=== PATIENT | female | born 2000 | race Caucasian/White ===

== ENCOUNTER 2024-11-01 13:10 | Outpatient (AMB) | payer OTHER, SELFPAY ==
--- NOTE | 2024-11-01 13:12 | A.OFFPC_ITS ---
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 Transferring from [facility] Follows with [facility] for [facility]. vyvanse and lithium, lamital stable Migraines increased in severity. 3x/month. Has to call out of work. Excedrin provides some relief. No aura. General right periorbital, temporal, parietal distribution. Interested in neurologic evaluation. Sees gynecology-11/01/24 ROS CONSTITUTIONAL: Denies weight loss, fever and chills. HEENT: Denies changes in vision and hearing. RESPIRATORY: Denies SOB and cough. CV: Denies palpitations and CP GI: Denies abdominal pain, nausea, vomiting and diarrhea. : Denies dysuria and urinary frequency. MSK: Denies new myalgia and joint pain. SKIN: Denies rash and pruritus. NEUROLOGICAL: Denies headache PSYCHIATRIC: Denies recent changes in mood. PHYSICAL EXAM: GENERAL: Alert and oriented x 3. NAD EYES: EOMI. Anicteric. HENT: Moist mucous membranes. No scleral icterus. No cervical lymphadenopathy. LUNGS: Clear to auscultation bilaterally. CARDIOVASCULAR: Regular rate and rhythm. No murmur. No JVD. ABDOMEN: Soft, non-tender +bs EXTREMITIES: No edema. Non-tender. SKIN: No rashes or lesions. Warm. NEUROLOGIC: No focal neurological deficits. CN II-XII grossly intact PSYCHIATRIC: Cooperative. 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 1. Little interest or pleasure in doing things: not at all 2. Feeling down, depressed, or hopeless: not at all 3. Trouble falling or staying asleep, or sleeping too much: not at all 4. Feeling tired or having little energy: more than half the days 5. Poor appetite or overeating: several days 6. Feeling bad about yourself - or that you are a failure or have let yourself or your family down: not at all 7. Trouble concentrating on things, such as reading the newspaper or watching television: not at all 8. Moving or speaking so slowly that other people could have noticed. Or the opposite - being so fidgety or restless that you have been moving around a lot more than usual: not at all 9. Thoughts that you would be better off or of hurting yourself in some way: not at all Total score: 3 Depression Screening Interpretation: Positive Depression Screening Done: Yes 09600 - PHQ-9 Billing: Yes Source: Developed by Drs. Jose Luis Tijerina, Mansi Gan, Edgard Dorsey and colleagues, with an educational kelvin from [employer]. Thrive Questionnaire Date Thrive assessed: 11/01/24 I am a: Patient What is your living situation today?: I have a steady place to live Within the past 12 months, did the food you bought not last and you didn't have the money to get more?: Never true Within the past 12 months, did you worry whether your food would run out before you got money to buy more?: Never true Do you have trouble paying for medicines?: No Do you have trouble getting transportation to medical appointments?: No Do you have trouble paying your heating and electricity bill?: No Do you have trouble taking care of your child, family member or friend?: No Do you have trouble with day-to-day activities such as bathing, preparing meals, shopping, managing finances, etc.?: No Are you currently unemployed and looking for a job?: No Are you interested in more education?: Yes Please select the resources that you would like help with: None Currently or been in a relationship where the following occur: No concerns reported THRIVE Score: 0 AUDIT C Alcohol Use Questionnaire (AUDIT-C) 1. How often do you have a drink containing alcohol?: Monthly or less 2. How many drinks containing alcohol do you have on a typical day when you are drinking?: 1 or 2 3. How often do you have six or more drinks on one occasion?: Never Total Score: 1 JESSICA-7 AMB Questionnaire JESSICA-7 Date JESSICA - 7 assessed: 11/01/24 Feeling nervous, anxious, or on edge: 1 = Several days Not being able to stop or control worryin = Not at all Worrying too much about different things: 1 = Several days Trouble relaxin = Not at all Being so restless that it is hard to sit still: 0 = Not at all Becoming easily annoyed or irritable: 1 = Several days Feeling afraid as if something awful might happen: 0 = Not at all Total JESSICA-7 score (0-4 normal; 5-9 mild; 10-14 moderate; 15-21 severe): 3 Source: Developed by Drs. Jose Luis Tijerina, Mansi Gan, Edgard Dorsey and colleagues, with an educational kelvin from [employer]. JESSICA-7 Assessment Billing JESSICA-7 Assessment Tool: JESSICA-7 Assessment 41031 Physical exam (Primary Care) Vital Signs: Last Vital Signs Pulse 82 11/01/24 13:20 BP 118/68 11/01/24 13:20 Pulse Ox 99 11/01/24 13:20 Oxygen Delivery Method Room Air 11/01/24 13:20 BMI result Body Mass Index 25.1 Tobacco/Smoking Status: Tobacco use Status Tobacco use date assessed 11/01/24 11/01/24 13:23 Patient Tobacco Use Status Never used Tobacco 11/01/24 13:23 e-Cigarette/Vaping Use Never Used 11/01/24 13:23 PHQ-9: PHQ-9 Score PHQ-9: Total score 3 11/01/24 13:24 Depression Screening Interpretation: Positive Thrive Assessment: Date of Thrive Assessment Date Thrive assessed 11/01/24 11/01/24 13:14 Currently or been in a relationship where the following occur: No concerns reported Coding Level of Care Code Est Pt Level 4 (24447) Complex EM visit Add On G2211 Diagnoses Encounter to establish care Z76.89 Migraine without status migrainosus, not intractable, unspecified migraine type G43.909 Migraine type: unspecified Status migrainosus presence: without status migrainosus Intractability: not intractable Additional Codes JESSICA-7 Assessment Billing - JESSICA-7 Assessment Tool: JESSICA-7 Assessment 41419 ([id number]) PHQ-9 - 23945 - PHQ-9 Billing: Yes ([id number]) Assessment & Plan Assessment & Plan (1) Encounter to establish care: Code(s): Z76.89 - Persons encountering health services in other specified circumstances Category: Medical Plan: 24 year old female to establish care. past medical, surgical, social and family history reviewed. (2) Migraines: Code(s): G43.909 - Migraine, unspecified, not intractable, without status migrainosus Category: Medical Qualifiers: Migraine type: unspecified Status migrainosus presence: without status migrainosus Intractability: not intractable Qualified Code(s): G43.909 - Migraine, unspecified, not intractable, without status migrainosus Plan: start imitrex PRN. referred to neurology Orders: Orders Comprehensive Met. Panel 11/01/24 F31.9 - Bipolar disorder, unspecified, G43.909 - Migraine, unspecified, not intractable, without status migrainosus, Z13.0 - Encounter for screening for diseases of the blood and blood-forming organs and certain disorders involving the immune mechanism, Z13.228 - Encounter for screening for other metabolic disorders Lyme IgG/IgM w/reflex to WB 11/01/24 F31.9 - Bipolar disorder, unspecified, G43.909 - Migraine, unspecified, not intractable, without status migrainosus, Z13.0 - Encounter for screening for diseases of the blood and blood-forming organs and certain disorders involving the immune mechanism, Z13.228 - Encounter for screening for other metabolic disorders Complete Blood Count Auto Diff 11/01/24 F31.9 - Bipolar disorder, unspecified, G43.909 - Migraine, unspecified, not intractable, without status migrainosus, Z13.0 - Encounter for screening for diseases of the blood and blood-forming organs and certain disorders involving the immune mechanism, Z13.228 - Encounter for screening for other metabolic disorders Lipid Panel 11/01/24 F31.9 - Bipolar disorder, unspecified, G43.909 - Migraine, unspecified, not intractable, without status migrainosus, Z13.0 - Encounter for screening for diseases of the blood and blood-forming organs and certain disorders involving the immune mechanism, Z13.228 - Encounter for screening for other metabolic disorders TSH reflex Free T4 11/01/24 F31.9 - Bipolar disorder, unspecified, G43.909 - Migraine, unspecified, not intractable, without status migrainosus, Z13.0 - Encounter for screening for diseases of the blood and blood-forming organs and certain disorders involving the immune mechanism, Z13.228 - Encounter for screening for other metabolic disorders Referrals Neurology Referral G43.909 - Migraine, unspecified, not intractable, without status migrainosus Medications: New sumatriptan succinate (Imitrex) take 1 tab at onset of headache; if no relief, may repeat 1 tab after at least 2 hrs; max = 2 tabs/24 hrs PO 30 tabs 0RF
[2024-11-01 13:20] VITALS: BP 118/68; PULSE 82; O2SAT 99; BMI 25.1
== END 2024-11-01 13:43 | disposition home or self-care (01) ==
PROVIDERS: Visit Provider Internal Medicine
DX: Z76.89 Persons encountering health services in other specified circumstances (principal); G43.909 Migraine, unspecified, not intractable, without status migrainosus

== ENCOUNTER → 2024-11-01 13:10 | Outpatient (BNVA) | payer OTHER, SELFPAY | PROVIDERS: Visit Provider Internal Medicine | DX: Z76.89 Persons encountering health services in other specified circumstances (principal); G43.909 Migraine, unspecified, not intractable, without status migrainosus | CPT/HCPCS: 96127; 99212 ==

== ENCOUNTER 2024-11-01 14:28 | Outpatient (REF) | payer OTHER, SELFPAY ==
[2024-11-01 17:48] LABS: MANUAL DIFF FLAG NO
[2024-11-01 17:55] LABS: Basophils Absolute Auto 0.1 X10*3/uL (0.0-0.2); Basophils Percent Auto 1.4 % (0-2); Eosinophils Absolute Auto 0.1 X10*3/uL (0.0-0.4); Eosinophils Percent Auto 1.5 % (0-4); Hematocrit 39.4 % (37.0-47.0); Hemoglobin 12.8 g/dl (12.0-16.0); Imm Gran Abs Auto 0.02 X10*3/uL (0.00-0.03); Imm Gran Pct Auto 0.3 % (0.0-0.4); Lymphocytes Absolute Auto 2.1 X10*3/uL (1.2-4.9); Lymphocytes Percent Auto 28.8 % (20-40); Mean Corpuscular HGB Conc 32.5 g/dl (31.0-35.0); Mean Corpuscular Hemoglobin 30.1 pg (27.0-33.0); Mean Corpuscular Volume 92.7 fL (80.0-98.0); Mean Platelet Volume 10.7 fL (9.4-12.3); Monocytes Absolute Auto 0.5 X10*3/uL (0.1-1.2); Monocytes Percent Auto 6.5 % (2-11); Neutrophils Absolute Auto 4.5 x10*3/uL (2.0-8.3); Neutrophils Percent Auto 61.5 % (45-73); Platelet Count 354 X10*3/uL (160-400); Red Blood Count 4.25 X10*6/uL (4.20-5.50); Red Cell Distribution Width 12.3 % (11.0-16.0); White Blood Count 7.3 X10*3/uL (4.8-10.8)
[2024-11-01 18:21] LABS: Alanine Aminotransferase 32 U/L (0-31); Albumin Level 4.3 g/dL (3.5-5.0); Alkaline Phosphatase 56 U/L (39-117); Anion Gap 10 (12-20); Aspartate Amino Transferase 25 U/L (5-31); Bilirubin Total 0.3 mg/dL (0.0-1.0); Blood Urea Nitrogen 18 mg/dL (9-16); Calcium 9.7 mg/dL (8.4-10.2); Carbon Dioxide 27 mmol/L (22-29); Chloride 110 mmol/L (96-108); Cholesterol 187 mg/dL (<200); Estimated Glomerular Filt Rate > 60; Glucose Random 93 mg/dL (60-115); HDL Cholesterol 63 mg/dL (>40); LDL Cholesterol Calculated 99 mg/dL (<100); Potassium 3.8 mmol/L (3.3-5.1); Sodium 143 mmol/L (135-145); Total Protein 6.8 g/dL (6.5-8.0); Triglycerides 128 mg/dL (<150)
[2024-11-01 18:25] LABS: TSH reflex Free T4 1.77 uIU/mL (0.32-4.0)
[2024-11-04 17:48] LABS: Lyme Abs Screen <0.90 index
--- OUTSIDE RECORDS SUMMARY | 2024-11-06 10:20 | XMS_ITS | Data Portability ---
Author Organization [facility] Office Address [address] [facility] [place] [address] Assessment Encounter Date Assessment Date Assessment LastModified by Organization Details LastModified Time 12/15/2023 12/15/2023 ASSESSMENT Right hip likely symptomatic labral tear in the setting of underlying femoroacetabular impingement, also dysplastic features and concern for microinstability. PLAN At this point, I would like to obtain a CT scan 3D constructions. I also like her again dynamic ultrasound assessment including potential intra-articular injection for diagnostic and therapeutic purposes. I would also like to set up an appointment for 2nd opinion regarding potential benefits of periacetabular osteotomy in combination with hip arthroscopy or in isolation. We will facilitate accordingly and advised the patient to take a long imaging to be assessed as well. Question ultimately will be right hip arthroscopy, ____ QA MARKER: 136 ____ indicated versus in combination simultaneous with periacetabular osteotomy ____ QA MARKER: 140 ____. [email or web address] Not available 12/19/2023 15:34:29 01/25/2024 01/25/2024 ASSESSMENT Concern is for right hip symptomatic labral tear in the setting of underlying femoroacetabular impingement, but also joo hip dysplasia and micro stability. PLAN At this point, I would like her to see one of my colleagues performing open hip preservation surgery at [facility]. We will facilitate a meeting accordingly to see if hip arthroscopy alone or in combination with periacetabular osteotomy or stages would be performed. [email or web address] Not available 01/26/2024 05:08:17 Plan of Treatment Reminders Order Date Submit Date Provider Last Modified By Organization Details Last Modified Time Details Appointments None recorded. Lab None recorded. Referral None recorded. Procedures None recorded. Surgeries None recorded. Imaging CT, hip, w/o contrast - [facility] 3D RECONSTRUCT IONS JAIME PROTOCOL 2023 024 [facility], [address] [place], [address], 16:28:59 Medication Orders None recorded. Patient TargetsNo targets recorded. Patient InstructionsNo instructions recorded. Reason for Referral None Reported. Results Created Date Observation Date Name Description Value Unit Range Abnormal Flag Note LastModifiedBy Organization Detail LastModifiedTime 12/08/19 24 10/24/2023 MRI, hip, w/ contr ast No observ ation record ed. [email or web address] Not Available 12/08 14:27:24 01/11/20 24 01/08/2024 CT, hip, w/o contr ast No observ ation record ed. [address] [facility] [address] [place] [address], [address], 01/11/2024 16:29:03 Result Notes None recorded. Procedures Surgical History Date Name Laterality Status Provider Name and Address Organization Details Recorded Time 05/05/20 21 Orthopaedic Surgery completed Miroslava Joshi MA [facility] 12/15/2023 08:33:47 Imaging Results Imaging Date Name Status LastModified by Organ ation Details LastModified Time 10/24/2023 MRI, hip, w/ contrast completed [email or web address] Information not available 12/08/2023 14:27:24 01/08/2024 CT, hip, w/o contrast completed [address] [facility] [address] [place], [address], 01/11/2024 16:29:03 Procedure Notes None recorded. Medical Equipment None Reported. Allergies No known drug allergies Medications Name Sig Start Date Stop Date Status Note LastModified by Organization Details LastModified Time lithium carbonate 300 mg capsule Take 1 capsule 3 times a day by oral route. active Not Available Not Available No t Available Lamictal 150 mg tablet Take 1 tablet twice a day by oral route. active Not Available Not Available No t Available Vyvanse 60 mg capsule Take 1 capsule every day by oral route. active Not Available Not Available No t Available Vitals Date Recorded Body height Body mass index (BMI) Body weight Provider Name and Address Organization Details Last Updated DateTime 12/15/2023 172.72 cm 23.3 kg/m2 47963.63 g Miroslava Joshi [facility] 12/15/2023 08:32:45 Date Recorded Body height Body mass index (BMI) Body weight Provider Name and Address Organization Details Last Updated DateTime 01/25/2024 172.72 cm 23.3 kg/m2 83551.63 g Mayuri Hackett [facility] 01/25/2024 15:47:19 Social History Question Answer Notes LastModified by Organizat ion Details LastModified Time Tobacco Smoking Status Never Smoker Miroslava alejandre [facility] 12/15/2023 08:25:03 What Is Your Level Of Alcohol Consumption? Occasional Information not available 12/15/2023 Do You Or Have You Ever Used E-cigarettes Or Vape? 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 Never Used Smokeless Tobacco Information not available 12/15/2023 Sex: Unknown Functional Status None recorded. Mental Status None recorded. Family History Nothing Reported. Medical History Condition Response HIV or AIDS N High Blood Pressure N Irregular Heartbeat N MRSA N Any Other Significant Medical Issues N Weight Gain / Loss N Hearing Loss N Angina, Heart Failure or Attack N Night Sweats N Seizures / Epilepsy N Osteoarthritis / Rheumatoid arthritis / Other N Cancer N Stroke N Ulcer / Stomach Bleeding / Indigestion N Visual Loss or Glaucoma N Blood Clots / Phlebitis N Heart Problems N Depression or Anxiety Y Emphysema / Chronic Bronchitis N Reaction to General/Local Anesthesia N Hepatitis / Jaundice Y Kidney / Bladder Infections N Diabetes N Bleeding Disorder N Chemical Dependency / Alcoholism N Psoriasis / Skin Rash N Thyroid Disorder N Heart Disease N Asthma / Shortness of Breath / Sleep Bacon Stringer ea (please specify) N Pulmonary Embolism N Gynecological HistoryNo gynecological history recorded. 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 Hip pain 41815904 M25.55 1 [id number] KASSY GONZALES MD [facility] [address] [place] [phone] 01/25/2024 07:38:22 01/26/2024 14:04:15 Hip pain 42397523 M25.551 Health Concerns Section Related Observation LastModified by Organization Detai ls LastModified Time None Recorded Concern Status LastModified by Organization Details LastModified Time None Recorded Advance Directives Directive None Recorded Payers Encounter Date Sequence Insurance Name Policy Number Policy Muller Covered Member ID Muller Member ID Guarantor Name 12/15/2023 1 [facility] DIRECT CONNECTORCARE TYPE I (HMO) [id number] Seema Radha Earnest [id number] Seema Tinoco 01/25/2024 1 [facility] - [employer] CONNECTORCARE TYPE I (HMO) [id number] Seema Radha Earnest [id number] 1 Seema Radha Earnest Notes Date Note Type Note Provider Name and Address Organization Details Recorded Time 12/15/2023 text/html 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 She has done recently physical therapy for more than a month. She has modified activities and taking anti-inflammatories . Recent MRI obtained as well as plain radiographs. She denies history of hypermobility. She denies history of connective tissue disease. EVON PEARCE [address] [place] [address], [place], [address], [facility] 12/25/2023 21:54:43 01/25/2024 text/html We were in touch with Seema today via Telehealth audiovisual [employer]. The patient is at work in [place], [place] and I am in the office in [place], [place]. Time for the visit including independent review of recently obtained original hip analysis was 27 minutes, also including discussion about next therapeutic steps. I also reviewed the recent consult with dynamic ultrasound assessment indicating slightly increased femoral head translation on dynamic ultrasound. This is concerning for micro stability. She was noted to have high-grade borderline dysplastic features on plain radiographs. This now seems to be consented on CT scan with 3D construction virtual hip analysis. KASSY GONZALES MD [address] [place] [address], [phone], [facility] 01/30/2024 15:36:59 OBGyn Episode No OBEpisode recorded.
== END 2024-11-01 14:29 | disposition home or self-care (01) ==
LOC: HO.WFDLDS 14:28
PROVIDERS: Visit Provider Internal Medicine
DX: Z13.228 Encounter for screening for other metabolic disorders (principal); Z13.0 Encounter for screening for diseases of the blood and blood-forming organs and certain disorders involving the immune mechanism; F31.9 Bipolar disorder, unspecified; G43.909 Migraine, unspecified, not intractable, without status migrainosus
CPT/HCPCS: 36415; 80053; 80061; 84443; 85025; 86617; 86618

== ENCOUNTER 2025-07-22 09:10 | Outpatient (REF) | payer OTHER, SELFPAY ==
[2025-07-22 15:22] LABS: Alanine Aminotransferase 37 U/L (0-31); Albumin Level 4.5 g/dL (3.5-5.0); Alkaline Phosphatase 69 U/L (39-117); Anion Gap 13 (12-20); Aspartate Amino Transferase 22 U/L (5-31); Blood Urea Nitrogen 15 mg/dL (9-16); Calcium 9.5 mg/dL (8.4-10.2); Carbon Dioxide 25 mmol/L (22-29); Chloride 110 mmol/L (96-108); Estimated Glomerular Filt Rate > 60; Magnesium 2.5 mg/dL (1.6-2.6); Potassium 3.6 mmol/L (3.3-5.1); Sodium 144 mmol/L (135-145); Total Protein 7.2 g/dL (6.5-8.0)
[2025-07-23 08:48] LABS: Lyme Abs Screen <0.90 index
== END 2025-07-22 09:11 | disposition home or self-care (01) ==
LOC: HO.WFDLDS 09:10
PROVIDERS: PCP Internal Medicine; Visit Provider Internal Medicine
DX: E04.2 Nontoxic multinodular goiter (principal); R00.1 Bradycardia, unspecified; R00.2 Palpitations
CPT/HCPCS: 36415; 80053; 83735; 84443; 86617; 86618; 96127

== ENCOUNTER 2025-07-22 09:10 | Outpatient (AMB) | payer OTHER, SELFPAY ==
--- OUTSIDE RECORDS SUMMARY | 2024-09-13 08:00 | XMS_ITS | Encounter Summary ---
Author Organization [facility] Address [address] [place] [address] Care Team Providers Care Head Of Insight Name Role Phone Unavailable Primary Care Provider [...] Care Team (Late st Contact Info) Description 09/09/2025 4:00 PM EDT Office Visit [facility] [address] [place] [address] Nicole Tatum, EVON [address] [place] [address] documented as of this encounter Goals Goal [...]
--- NOTE | 2025-07-22 09:15 | A.OFFPC_ITS ---
Vital Signs 07/22/25 09:23 Height 5 ft 6.54 in Weight 145 lb BMI 23.0 BP 126/70 Blood Pressure Location Rt brachial Position Sitting Respiration 12 Pulse 89 Pulse Source Pulse Oximeter Temp 98.8 F Temp Source Oral Pulse Oximetry (%) 100 Oxygen Delivery Method Room Air Intake Visit Reasons: Heart Palpitation Intake Note: Heart palpatation. Went to [facility] last week. Time Clock Inspector Required: No Allergies No Known Allergies Allergy (Verified 07/22/25 09:21) Tobacco use date assessed: 07/22/25 Dental Screening Dental Screen Date: 07/22/25 Did you have a dental visit in the last 12 months?: Yes Did you have a dental problem in the last 6 months where you did not have access to dental care?: No Was dental information given to patient?: Patient has dentist HPI HPI Comments History of Present Illness Details The patient is a 24 year old female with a past medical history of ADD, bipolar disorder presenting for palpitations Patient notes that heart rat has been dropping into the 40s and increasing into the 120s, 130s with no change in exertional level. She denies lighthead/dizziness with bradycardia. Heart beats feel regular. No recent change in medications Follows with [facility] for [facility]. vyvanse and lithium, lamital stable Migraines- 3x/month. Has to call out of work. Excedrin provides some relief. No aura. General right periorbital, temporal, parietal distribution. Referred previously to neurology Sees gynecology-11/01/24 ROS see HPI PHYSICAL EXAM: GENERAL: Alert and oriented x 3. NAD EYES: EOMI. Anicteric. HENT: Moist mucous membranes. No scleral icterus. Heterogenous thyroid LUNGS: Clear to auscultation bilaterally. CARDIOVASCULAR: Regular rate and rhythm. No JVD. ABDOMEN: Soft, non-tender +bs EXTREMITIES: No edema. Non-tender. SKIN: No rashes or lesions. Warm. NEUROLOGIC: No focal neurological deficits. CN II-XII grossly intact PSYCHIATRIC: Cooperative. 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 1. Little interest or pleasure in doing things: not at all 2. Feeling down, depressed, or hopeless: not at all 3. Trouble falling or staying asleep, or sleeping too much: not at all 4. Feeling tired or having little energy: nearly every day 5. Poor appetite or overeating: nearly every day 6. Feeling bad about yourself - or that you are a failure or have let yourself or your family down: not at all 7. Trouble concentrating on things, such as reading the newspaper or watching television: not at all 8. Moving or speaking so slowly that other people could have noticed. Or the opposite - being so fidgety or restless that you have been moving around a lot more than usual: not at all 9. Thoughts that you would be better off or of hurting yourself in some way: not at all Total score: 6 Depression Screening Interpretation: Positive Depression Screening Follow-up: In treatment Depression Screening Done: Yes 15606 - PHQ-9 Billing: Yes Source: Developed by Drs. Jose Luis Tijerina, Mansi Gan, Edgard Dorsey and colleagues, with an educational kelvin from [employer]. Thrive Questionnaire Date Thrive assessed: 07/19/25 I am a: Patient What is your living situation today?: I have a steady place to live Within the past 12 months, did the food you bought not last and you didn't have the money to get more?: Never true Within the past 12 months, did you worry whether your food would run out before you got money to buy more?: Never true Do you have trouble paying for medicines?: No Do you have trouble getting transportation to medical appointments?: No Do you have trouble paying your heating and electricity bill?: No Do you have trouble taking care of your child, family member or friend?: No Do you have trouble with day-to-day activities such as bathing, preparing meals, shopping, managing finances, etc.?: No Are you currently unemployed and looking for a job?: No Are you interested in more education?: Yes Please select the resources that you would like help with: None Currently or been in a relationship where the following occur: Controlled Emotionally THRIVE Score: 1 AUDIT C Alcohol Use Questionnaire (AUDIT-C) 1. How often do you have a drink containing alcohol?: Monthly or less 2. How many drinks containing alcohol do you have on a typical day when you are drinking?: 1 or 2 3. How often do you have six or more drinks on one occasion?: Never Total Score: 1 JESSICA-7 AMB Questionnaire JESSICA-7 Date JESSICA - 7 assessed: 07/22/25 Feeling nervous, anxious, or on edge: 2 = More than half the days Not being able to stop or control worryin = Several days Worrying too much about different things: 2 = More than half the days Trouble relaxin = Several days Being so restless that it is hard to sit still: 0 = Not at all Becoming easily annoyed or irritable: 0 = Not at all Feeling afraid as if something awful might happen: 0 = Not at all Total JESSICA-7 score (0-4 normal; 5-9 mild; 10-14 moderate; 15-21 severe): 6 Source: Developed by Drs. Jose Luis Tijerina, Mansi Gan, Edgard Dorsey and colleagues, with an educational kelvin from [employer]. JESSICA-7 Assessment Billing JESSICA-7 Assessment Tool: JESSICA-7 Assessment 76399 Physical exam (Primary Care) Vital Signs: Last Vital Signs Temp 98.8 F 07/22/25 09:23 Pulse 89 07/22/25 09:23 Resp 12 07/22/25 09:23 BP 126/70 07/22/25 09:23 Pulse Ox 100 07/22/25 09:23 Oxygen Delivery Method Room Air 07/22/25 09:23 BMI result Body Mass Index 23.0 Tobacco/Smoking Status: Tobacco use Status Tobacco use date assessed 07/22/25 07/22/25 09:26 Patient Tobacco Use Status Never used Tobacco 07/22/25 09:32 e-Cigarette/Vaping Use Never Used 07/22/25 09:32 PHQ-9: PHQ-9 Score PHQ-9: Total score 6 07/26/25 13:46 Depression Screening Interpretation: Positive Depression Screening Follow-up: In treatment Thrive Assessment: Date of Thrive Assessment Date Thrive assessed 07/19/25 07/22/25 09:16 Currently or been in a relationship where the following occur: Controlled Emotionally Coding Level of Care Code Est Pt Level 4 (26117) Diagnoses Bradycardia R00.1 Multinodular thyroid E04.2 Additional Codes JESSICA-7 Assessment Billing - JESSICA-7 Assessment Tool: JESSICA-7 Assessment 31427 ([id number]) PHQ-9 - 47984 - PHQ-9 Billing: Yes ([id number]) Assessment & Plan Assessment & Plan (1) Bradycardia: Code(s): R00.1 - Bradycardia, unspecified Category: Medical (2) Multinodular thyroid: Code(s): E04.2 - Nontoxic multinodular goiter Category: Medical Plan 25 y/o female presenting for bradycardia, tachycardia Bradycardia at this point more concerning Labs ordered. 48 hour monitor. Referral to cardiology Orders: Orders ECG holter monitor 48 hour 07/25/25 R00.1 - Bradycardia, unspecified TSH reflex Free T4 07/22/25 R00.1 - Bradycardia, unspecified, R00.2 - Palpitations Comprehensive Met. Panel 07/22/25 R00.1 - Bradycardia, unspecified, R00.2 - Palpitations Magnesium 07/22/25 R00.1 - Bradycardia, unspecified, R00.2 - Palpitations US thyroid 07/22/25 E04.2 - Nontoxic multinodular goiter Lyme IgG/IgM w/reflex to WB 07/22/25 R00.1 - Bradycardia, unspecified, R00.2 - Palpitations Referrals Cardiology Referral R00.1 - Bradycardia, unspecified, R00.2 - Palpitations
[2025-07-22 09:23] VITALS: BP 126/70; PULSE 89; RESP 12; TEMP 37.1; O2SAT 100; BMI 23.0
--- OUTSIDE RECORDS SUMMARY | 2025-07-22 09:32 | XMS_ITS | Clinical Summary ---
Author Organization [facility] Address [address] [place] [address] Phone Care Team Providers Care Manager Urgent Care Name Role Phone Prabhakar Funk MD Primary Care Provider Dewayne Hernandez Unavailable Prabhakar Funk MD Unavailable [phone] Ofelia Nelson Unavailable Social History Tobacco Use Types Packs/Day Years Used Date Smoking Tobacco: Never Tobacco Cessation:Counseling Given: Not Answered Comments Unknown Sex and Gender Information Value Date Recorded Sex Assigned at Not on file Legal Sex Female 7:15 AM EDT Gender Identity Not on file Sexual Orientation Not on file Last Filed Vital Signs Vital Sign Reading Time Taken Comments Blood Pressure - - Pulse - - Temperature 36.4 C (97.5 F) 11/06/2024 9:45 AM EST Respiratory Rate - - Oxygen Saturation - - Inhaled Oxygen Concentration - - Weight 71.8 kg (158 lb 4.6 oz) 11/06/2024 9:45 A M EST Height 173.1 cm (5' 8.15 ) 11/06/2024 9:45 AM ES T Body Mass Index 23.96 11/06/2024 9:45 AM EST Plan of Treatment Upcoming Encounters Date Type Department Care Team (Late st Contact Info) Description 09/08/2025 8:45 AM EDT Office Visit [facility] Orthopedics and Sports Medicine Department [address] [place] [phone] Juan Dumont MD [address] [facility] [address] [place] [address] Health Maintenance Due Date Last Done Comments HIV Screening 2001 MMR Vaccines (1 of 1 - Standard series) 2002 Varicella Vaccines (1 of 2 - 13+ 2-dose series) 2014 HPV Vaccines (1 - 3-dose series) 2016 Hepatitis C Screening 2019 Hepatitis B Vaccines (1 of 3 - 19+ 3-dose series) 2020 DTaP/Tdap/Td Vaccines (3 - Td or Tdap) 12/03/2023 06/02/2023, 06/30/2022 Influenza Vaccine (#1) 2025 , 09/06/2023, 09/25/2022, Additional history exists Meningococcal Vaccine Completed 12/08/2017 Meningococcal B Vaccine Completed 01/22/2019, 12/19 COVID-19 Vaccine Completed 08/21/2024, 09/2023, 09/25/2022, Additional history exists HIB Vaccines Aged Out No longer eligi ble based on patient's age to complete this topic Hepatitis A Vaccines Aged Out No long er eligible based on patient's age to complete this topic IPV Vaccines Aged Out No longer eligi ble based on patient's age to complete this topic Pneumococcal Vaccine: Pediatrics (0 to 5 Years) and At-Risk Patients (6 to 49 Years) Aged Out No longer eligible based on patient's age to complete this topic Rotavirus Vaccines Aged Out No longer eligible based on patient's age to complete this topic [place] [address] [place] [address] PLAN Care Teams Manager Urgent Care Relationship Specialty Start Date End Date Prabhakar Funk MD [address] [phone] PCP - General 04/01/[address] [place] [id number] PCP - Insurance PCP 01/01/24 Prabhakar Funk MD [address] [place] [phone] PCP - Clinical PCP 01/01/24 Ofelia Nelson [address] [place] [phone] PCP - Insurance Identified PCP 10/21/24
--- OUTSIDE RECORDS SUMMARY | 2025-07-22 09:32 | XMS_ITS | Encounter Summary ---
Author Organization [facility] Address [address] [place] [address] Phone Care Team Providers Care Principal Solutions Architect Name Role Phone Pradeep Sotelo MD Primary Care Provider [phone] Encounter Details Date Type Department Care Team (Late st Contact Info) Description 04/27/2021 Prep for Surgery Orthopedics [address], [address] [place] [address] Lindsey Villagomez PA-C [address] [place] [phone] Social History Tobacco Use Types Packs/Day Years Used Date Smoking Tobacco: Never Smokeless Tobacco: Never Alcohol Use Standard Drinks/Week Comments Never 0 (1 standard drink = 0.6 oz pur e alcohol) Comments No Sex and Gender Information Value Date Recorded Sex Assigned at Not on file Legal Sex Female 1:05 PM EDT Gender Identity Not on file Sexual Orientation Not on file documented as of this encounter H&P Notes * Lindsey Villagomez PA-C - 04/27/2021 9:10 AM EDT History:?Seema Tinoco??is a 20 y.o.??female who is seen today in regards to a right knee injury which she sustained on 03/04/2021. 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 She had immediate onset of pain and difficulty with weightbearing and range of motion. She also reports intermittent instability but denies any significant mechanical symptoms. She has seen Jono in the office and has been bracing, resting, and using anti-inflammatories and ice as needed. MRI confirms ACL tear. Patient has been involved in rehab for the right knee and is here for preoperative appointment. She has no history of any significant right knee injury and has had no prior right knee surgery. ?? Past medical history: None ?? Past surgical history: None ?? Allergies: No known drug allergies ?? Medications: Sumatriptan, OCPs ?? 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 Events include 100 and 200 m hurdles and javelin. She denies any alcohol, tobacco, illicit drug use. She is a current sophomore. ?? Physical Examination:? Seema is a pleasant well-appearing 20-year-old female, no apparent distress and alert and oriented x3. She ambulates in the office today with no significant antalgic gait and no assistive device. There is a scant right knee effusion, no deformity. Range of motion shows full extension and she has flexion to 130. She is a stable varus valgus exam at full extension and 30 degrees of flexion. No joint line tenderness medially or laterally. She has a negative Susan's. Posterior drawer is negative. She has increased anterior translation with a soft endpoint on the Edilson exam of the right knee consistent with 1-2+ laxity. Contralateral knee shows no significant anterior translation on Edilson exam. EHL, FHL, GS, AT function are intact. No significant quad atrophy. Sensation is intact in the deep peroneal, superficial peroneal, sural, saphenous, tibial distributions and she has palpable DP pulse. ?? Imaging: Patient had a recent right knee MRI at [facility] on 03/11/2021. This confirms complete ACL rupture and pathopneumonic bone bruising pattern. No evidence for articular cartilage or meniscal tear. No other significant ligamentous injury. ?? Assessment:?Right knee instability,?? ACL tear ?? Plan:? This is a 20-year-old female with a an acute ACL rupture. There is no apparent articular cartilage or meniscal injury. We discussed the imaging studies at length as well as management options including conservative and operative management. Given her age and activity level I would recommend right knee arthroscopy and ACL reconstruction/repair as indicated. I would recommend autograft. We discussed the risks and benefits of the various graft choices including BTB and hamstring autograft. I would recommend hamstring autograft for this young female athlete. We did discuss that this maycause some mild hamstring weakness, however she would like to avoid any potential anterior knee pain going forward. We also discussed possibility of allograft supplementation with hamstring reconstruction. I discussed with the patient the risks and benefits of surgery. A thorough discussion regarding thealternatives to surgery was also conducted. Risks and benefits include but are not limited to a risk of infection, blood loss, DVT/PE, damage to vessels, nerve injury, failure of the surgery, loss ofmotion and stiffness, and the need for future surgery. The patient understands that if mechanical implants (such as screws, suture anchors and buttons) are utilized that these may cause complications, and that revision of the implants may be necessary including removal of implants. The patient alsounderstands that the use of implants requires drilling tunnels, which may predispose the patient toa fracture. There have been no guarantees made and the decision for surgery has been made via a shared decision making model. All of the patient's questions and concerns were addressed, the risks of surgery were accepted and surgical consent was obtained. We will move forward with scheduling this procedure at a mutually convenient time. ?? documented in this encounter Plan of Treatment Not on file documented as of this encounter Visit Diagnoses Not on filedocumented in this encounter Care Teams Principal Solutions Architect Relationship Specialty Start Date End Date Pradeep Sotelo MD [address] [place] [address] PCP - General Adolescent Medicine 03/05/21 documented as of this encounter Additional Source Comments The information contained in this document represents components of the legal health record. It is not the complete legal health record.[facility]
--- OUTSIDE RECORDS SUMMARY | 2025-07-22 09:32 | XMS_ITS | Clinical Summary ---
Author Organization [facility] Address [address] [place], [place] [id number] Phone Care Team Providers Care Laser Beam Cutter Name Role Phone Pradeep Sotelo MD Primary Care Provider [phone] Allergies No known active allergies Medications prochlorperazin e (COMPAZINE) 10 MG tablet Take 1 tablet (10 mg total) by mouth every 8 (eight) hours as needed (nausea). 15 tablet Active Additional Information Patient not taking.Reported on 09/09/2021 LITHIUM CITRATE ORAL Take by mouth. Activ e dextroamphetami ne/amphetamine (ADDERALL ORAL) Take by mouth. Active norethindrone-e thinyl estradiol-iron (ESTROSTEP FE) 1-20(5)/1-30(7) /1mg-35mcg (9) Tab Take 1 tablet by mouth daily. Active Active Problems No known active problems Family History Medical History Relation Comments Other Father No Known Problems Mother Relation Status Comments Father overdose Mother Alive Social History Tobacco Use Types Packs/Day Years Used Date Smoking Tobacco: Never Smokeless Tobacco: Never Alcohol Use Standard Drinks/Week Comments Never 0 (1 standard drink = 0.6 oz pur e alcohol) Education Answer Date Recorded Are you interested in more education? Not on chanelle e 03/24/2023 Are you concerned about learning? Not on file 03/24/2023 No 03/24/2023 No 03/24/2023 Digital Access Answer Date Recorded No 04/22/2023 No 04/22/2023 No 04/22/2023 Reliable internet access at home? Not on file 04/22/2023 Device with a working camera? Not on file Comments No Sex and Gender Information Value Date Recorded Sex Assigned at Not on file Legal Sex Female 1:05 PM EDT Gender Identity Not on file Sexual Orientation Not on file Last Filed Vital Signs Vital Sign Reading Time Taken Comments Blood Pressure 114/64 11/06/2021 4:26 PM EST Pulse 66 11/06/2021 6:49 PM EST Temperature 36.1 C (97 F) 11/06/2021 4:26 PM EST Respiratory Rate 17 11/06/2021 6:49 PM EST Oxygen Saturation 98% 11/06/2021 6:49 PM EST Inhaled Oxygen Concentration - - Weight 68 kg (150 lb) 12/16/2021 3:38 PM EST Height 172.7 cm (5' 8 ) 12/16/2021 3:38 PM EST Body Mass Index 22.81 12/16/2021 3:38 PM EST Plan of Treatment Health Maintenance Due Date Last Done Comments Adult Td,Tdap Booster 2001 TSH LEVEL 2001 DEPRESSION SCREENING 2013 SMOKING Hx and SMOKELESS TOBACCO SCREENING 2014 HPV VACCINES (1 - 3-dose series) 2016 CHLAMYDIA SCREENING 2017 HEPATITIS C SCREENING 2019 HIV ONE-TIME SCREENING (18-6 5 YEARS) 2019 PAP SMEAR 2022 CREATININE LEVEL 11/06/2022 11/06/2021 LITHIUM LEVEL 11/06/2022 11/06/2021 COVID-19 VACCINE (3 - 2023-2 5 season) 2024 01/05/2021, 12/15/2020 MENINGOCOCCAL VACCINES (ACWY) Completed 12/08/2017 MENINGOCOCCAL VACCINES (B) Completed 01/22, 12/19/2018 HEPATITIS A VACCINES Aged Out No long er eligible based on patient's age to complete this topic HIB VACCINES Aged Out No longer eligi ble based on patient's age to complete this topic PNEUMOCOCCAL VACCINES (0-49 years) Aged Out No longer eligible b ased on patient's age to complete this topic Medical Devices Not on file Procedures Procedure Name Priority Date/Time Associated Diagnosis Comments LITHIUM LEVEL STAT 11/06/2021 6:31 PM EST BASIC METABOLIC PANEL STAT 11/06/2021 6:31 PM EST from Last 3 Months or Most Recently Relevant to Health Maintenance Results * Kimberton level (11/06/2021 6:31 PM EST) LITHIUM 0.52 0.50 - 1.20 mmol/L [facility] Blood 11/06/2021 6:31 PM EST 11/06/2021 6:43 PM EST us Lupillo Herbert MD LAB BLOOD ORDERABLES Final Resu lt Performing Organization Address [facility] Co de Phone Number [facility] [address] [place] [address] * (ABNORMAL) Basic metabolic panel (11/06/2021 6:31 PM EST) SODIUM 141 136 - 145 mmol/L [facility] CHLORIDE 107(H) 95 - 106 mmol/L [facility] POTASSIUM 4.5 3.5 - 5.2 mmol/L [facility] CO2 25 20 - 31 mmol/L [facility] BUN 6(L) 9 - 23 mg/dL [facility] CREATININE 0.62 0.50 - 1.30 mg/dL [facility] GLUCOSE 117(H) 74 - 106 mg/dL [facility] CALCIUM 9.3 8.7 - 10.4 mg/dL [facility] EGFR >120 >60 mL/min/1.7 3m2 [facility] Comment:Estimated glomerular filtration rate calculated using the CKD-EPI refit equation. ANION GAP 9 3 - 17 mmol/L [facility] Blood 11/06/2021 6:31 PM EST 11/06/2021 6:43 PM EST us Lupillo Herbert MD LAB BLOOD ORDERABLES Final Resu lt Performing Organization Address [facility]/ZIP Co de Phone Number [facility] [address] [place] [address] from Last 3 Months or Most Recently Relevant to Health Maintenance [place] [address] [place] [address] [place] [address] [place] [address] [place] [address] [place] [address] [place] [address] [place] [address] [place] [address] [address] [place] [address] [place] [address] [place] [address] Care Teams Laser Beam Cutter Relationship Specialty Start Date End Date Pradeep Sotelo MD [address] [place] [address] PCP - General Adolescent Medicine 03/05/21 Additional Source Comments The information contained in this document represents components of the legal health record. It is not the complete legal health record.[facility]
--- OUTSIDE RECORDS SUMMARY | 2025-07-22 09:32 | XMS_ITS | Clinical Summary ---
Author Organization [facility] Address [address] [place] [address] Phone Care Team Providers Care Outside Medical Sales Representative Name Role Phone Ofelia Dotson MD Primary Care Provider [phone] Allergies No known active allergies Medications lamotrigine (LAMICTAL ORAL) Take 1 tablet by mouth 1 (one) time each day. 125MG Active Vyvanse 50 mg capsule 1 TABLET DIRECTED DAILY 10/31/2024 Active lithium 300 mg capsule Take 1 capsule (300 mg total) by mouth 1 (one) time each day. 300MG DAILY AND 150MG AT NIGHT Active aspirin-acetami nophen-caffeine (EXCEDRIN MIGRAINE) 250-250-65 mg per tablet Take 1 tablet by mouth every 6 (six) hours if needed for headaches. Active riboflavin (VITAMIN B2) 400 mg tablet Take 1 tablet (400 mg total) by mouth 1 (one) time each day. 60 tablet 2 11/08/2024 Active topiramate (TOPAMAX) 25 mg tablet Take 1 tablet (25 mg total) by mouth 1 (one) time each day for 7 days, THEN 1 tablet (25 mg total) 2 (two) times a day for 14 days, THEN 2 tablets (50 mg total) 2 (two) times a day. 155 each 01/14/2025 Active doxycycline (MONODOX) 50 mg capsule 01/10/2025 Active tretinoin (RETIN-A) 0.025 % cream 01/10/2025 Active ergocalciferol (VITAMIN D-2) 1,250 mcg (50,000 unit) capsule Take 1 capsule (50,000 Units total) by mouth 1 (one) time per week. 4 each 02/24/2025 02/25/20 26 Active topiramate (Topamax) 50 mg tablet Take 1 tablet (50 mg total) by mouth 2 (two) times a day. 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 She saw neurology for headache and whooshing , pulastile tinnutus. She notes that whooshing sound primarily when she goes from sitting to standing/certain movements, it is bothersome, but not constant. She does not note any balance issues, vision change, weakness, vomiting. Patient had brain MRI 12/06/2024 [facility] that shows triangular-shaped cyst in the posterior body right lateral ventricle, no hydrocephalus, no solid masses noted. It does not involve the foramen of Monro, no hemorrhage. Dr. 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 It is not likely to be the cause of the swishing sounds or headache. I asked the patient to call if she has any change in symptoms, questions or concerns. At this point it does not seem she will need any neurosurgical intervention. I am not sure if the ringing in the ears is side effects from her meds, she has not yet started the rizatriptan, had stopped the sumatriptan, but does use Excedrin with Tylenol, is on Lamictal and lithium. I asked her to check with her pharmacist to see if they feel the Lamictal or other meds could be related, also when she takes the meds see if there is any correlation. All questions answered. Encounters Date Type Department Care Team Description 06/26/2025 3:00 PM EDT Office Visit [address] [address] Nicole Tatum PA Migraine without aura and without status migrainosus, not intractable (Primary Dx) from Last 3 Months Immunizations Name Administration Dates Next Due Influenza Quadravalent, MDCK , 0.5ml, preservative free (Flucelvax) 6mo and older 09/15/2018 Influenza Quadrivalent, 0.5m l, preservative free (Fluarix; FluLaval; Fluzone) ages 6mo and older (Afluria) 3yo and older 09/06/2023,09/25/2022,09/07/2021,09/15 Influenza trivalent, 0.5mL, preservative free (Fluarix; FluLaval; Fluzone) ages 6mo and older (Afluria) 3 years and older 08/21/2024 Meningococcal B, Recombinant (Bexsero) 16yo to less than 24yo 01/22/2019,12/19/2018 Meningococcal MCV4P 12/08/2017 PPD Test 03/27/2022,03/20/2022 Tdap Tetanus diptheria acell ular pertussis (Boostrix; Adacel) 7yo and older 06/02/2023,06/30/2022 Surgical History Surgery Date Site/Laterality Comments KNEE SURGERY Right ACL Medical History Medical History Date Comments Headache Adhd Hip dysplasia Social History Tobacco Use Types Packs/Day Years Used Date Smoking Tobacco: Never Passive Smoke Exposure: Never Smokeless Tobacco: Never Tobacco Cessation:Counseling Given: Not Answered Comments Unknown Sex and Gender Information Value Date Recorded Sex Assigned at Female 12/13/2024 8:39 AM EST Legal Sex Female 3:39 PM EDT Gender Identity Female 12/13/2024 8:39 AM EST Sexual Orientation Choose not to disclose 2024 8:39 AM EST Obstetrics History Last Filed Vital Signs Vital Sign Reading Time Taken Comments Blood Pressure 124/81 06/26/2025 3:05 PM EDT Pulse 72 06/26/2025 3:05 PM EDT Temperature 36.3 C (97.3 F) 06/26/2025 3:05 PM EDT Respiratory Rate - - Oxygen Saturation 98% 06/26/2025 3:05 PM EDT Inhaled Oxygen Concentration - - Weight 65.8 kg (145 lb) 06/26/2025 3:05 PM EDT Height 172.7 cm (5' 8 ) 06/26/2025 3:05 PM EDT Body Mass Index 22.05 06/26/2025 3:05 PM EDT Plan of Treatment Upcoming Encounters Date Type Department Care Team (Late st Contact Info) Description 09/09/2025 4:00 PM EDT Office Visit [facility] [address] [facility] [address] [place] [address] Nicole Tatum PA [address] [place] [phone] Health Maintenance Due Date Last Done Comments Gonorrhea/Chlamydia Screening 2001 HPV Vaccines (1 - 3-dose series) 2016 Cervical Cancer Screening: Pap Smear 2022 HIV Screening 09/04/2024 Hepatitis C Screening 09/04/2024 Social Influencers of Health Screening 09/04/2024 Depression Screening 11/27/2024 Influenza Vaccine (#1) 2025 , 09/06/2023, 09/25/2022, Additional history exists DTaP,Tdap,and Td Vaccines (3 - Td or Tdap) 06/02/2033 06/02/2023, 06/30/2022 Meningococcal ACWY Vaccine Completed 12/08/2017 Meningococcal B Vaccine Completed 01/22/2019, 12/19 COVID-19 Vaccine Completed 08/21/2024, 09/2023, 09/25/2022, Additional history exists Hepatitis B Vaccines Completed 04/29/2025, 03/29/20 HIB Vaccines Aged Out No longer eligi ble based on patient's age to complete this topic Hepatitis A Vaccines Aged Out No long er eligible based on patient's age to complete this topic IPV Vaccines Aged Out No longer eligi ble based on patient's age to complete this topic MMR Vaccines Aged Out No longer eligi ble based on patient's age to complete this topic Pneumococcal Vaccine: Pediatrics (0 to 5 Years) and At-Risk Patients (6 to 49 Years) Aged Out No longer eligible based on patient's age to complete this topic RSV Immunization Patients Under 20 months Aged Out No longer eligible based on patient's age to complete this topic Varicella Vaccines Aged Out No longer eligible based on patient's age to complete this topic Goals Goal Patient Goal Type Associated Problems [...] Pt will be independent with HEP -met Procedures Procedure Name Priority Date/Time Associated Diagnosis Comments THYROID STIMULATING HORMONE Routine 06/26/2025 3:41 PM EDT Migraine without aura and without status migrainosus, not intractable VITAMIN B12 Routine 06/26/2025 3:41 PM EDT Migraine without aura and without status migrainosus, not intractable VITAMIN D 25 HYDROXY Routine 06/26/2025 3:41 PM EDT Migraine without aura and without status migrainosus, not intractable COMPREHENSIVE METABOLIC PANEL Routine 06/26/2025 3:41 PM EDT Migraine without aura and without status migrainosus, not intractable from Last 3 Months Results * Vitamin D 25 hydroxy (06/26/2025 3:41 PM EDT) Vit D, 25-Hydroxy 55.6 30.0 - 80.0 ng/mL LAB CHEMISTRY METHOD 06/26/2025 8:22 PM EDT [facility] Blood Venous blood specimen / Unknown Venipuncture / Unknown 06/26/2025 3:41 PM EDT 06/26/2025 3:41 PM EDT Nicole BARNARD LAB BLOOD ORDERABLES Final R esult [facility] [address] [place] [address], [place] [phone] * Thyroid stimulating hormone (06/26/2025 3:41 PM EDT) Pathologist [facility] TSH 1.46 0.40 - 4.00 mcIU/mL LAB CHEMISTRY METHOD 06/26/2025 8:22 PM EDT [facility] Blood Venous blood specimen / Unknown Venipuncture / Unknown 06/26/2025 3:41 PM EDT 06/26/2025 3:41 PM EDT [facility] BLOOD ORDERABLES Final R esult [facility] [address] [place] [address], [place] [phone] * Vitamin B12 (06/26/2025 3:41 PM EDT) Pathologist [facility] Vitamin B-12 496 250 - 900 pcg/mL LAB CHEMISTRY METHOD 06/26/2025 7:12 PM EDT [facility] Blood Venous blood specimen / Unknown Venipuncture / Unknown 06/26/2025 3:41 PM EDT 06/26/2025 3:41 PM EDT [facility] LAB BLOOD ORDERABLES Final R esult [facility] [address] [place] [address], [place] [phone] * (ABNORMAL) Comprehensive metabolic panel (06/26/2025 3:41 PM EDT) [facility] Sodium 139 133 - 145 mmol/L LAB CHEMISTRY METHOD 06/26/2025 7:12 PM EDT [facility] Potassium 4.2 3.5 - 5.5 mmol/L LAB CHEMISTRY METHOD 06/26/2025 7:12 PM EDT [facility] Chloride 109 96 - 110 mmol/L LAB CHEMISTRY METHOD 06/26/2025 7:12 PM [facility] CO2 25 21 - 32 mmol/L LAB CHEMISTRY METHOD 06/26/2025 7:12 PM [facility] Anion Gap 5 3 - 11 LAB CHEMISTRY METHOD 06/26/2025 7:12 PM [facility] Glucose 69(L) 70 - 100 mg/dL LAB CHEMISTRY METHOD 06/26/2025 7:12 PM [facility] BUN 22 5 - 25 mg/dL LAB CHEMISTRY METHOD 06/26/2025 7:12 PM [facility] Creatinine 0.79 0.50 - 1.10 mg/dL LAB CHEMISTRY METHOD 06/26/2025 7:12 PM [facility] eGFR 108 >=60 mL/min/1. 73m2 LAB CHEMISTRY METHOD 06/26/2025 7:12 PM [facility] Comment:Calculation based on the Chronic Kidney Disease Epidemiology Collaboration (CKD-EPI) equation refit without adjustment for race. BUN/Creatinine Ratio 27.8 LAB CHEMISTRY METHOD 06/26/2025 7:12 PM [facility] Calcium 9.3 8.5 - 10.5 mg/dL LAB CHEMISTRY METHOD 06/26/2025 7:12 PM [facility] AST (SGOT) 19 10 - 42 unit/L LAB CHEMISTRY METHOD 06/26/2025 7:12 PM [facility] ALT (SGPT) 35 10 - 60 unit/L LAB CHEMISTRY METHOD 06/26/2025 7:12 PM [facility] Alkaline Phosphatase 71 42 - 121 unit/L LAB CHEMISTRY METHOD 06/26/2025 7:12 PM [facility] Total Protein 7.1 6.0 - 8.0 g/dL LAB CHEMISTRY METHOD 06/26/2025 7:12 PM [facility] Albumin 4.2 3.2 - 5.0 g/dL LAB CHEMISTRY METHOD 06/26/2025 7:12 PM EDT [facility] Total Bilirubin 0.3 0.0 - 1.4 mg/dL LAB CHEMISTRY METHOD 06/26/2025 7:12 PM EDT [facility] Blood Venous blood specimen / Unknown Venipuncture / Unknown 06/26/2025 3:41 PM EDT 06/26/2025 3:41 PM EDT Nicole BARNARD LAB BLOOD ORDERABLES Final R esult [facility] [address] [place] [address], from Last 3 Months Insurance [employer] Care Teams Outside Medical Sales Representative Relationship Specialty Start Date End Date Ofelia Dotson MD [address] [place] [address] [address] [place] [address] PCP - General Endocrinology 01/02/25
== END 2025-07-22 09:48 | disposition home or self-care (01) ==
LOC: HO.HMCFM 09:10
PROVIDERS: PCP Internal Medicine; Visit Provider Internal Medicine
DX: R00.1 Bradycardia, unspecified (principal); E04.2 Nontoxic multinodular goiter

== ENCOUNTER → 2025-07-25 15:00 | Outpatient (REF) | payer OTHER, SELFPAY ==
--- OUTSIDE RECORDS SUMMARY | 2024-09-13 08:00 | XMS_ITS | Encounter Summary ---
Author Organization [facility] Address [address] [place] [address] Care Team Providers Care Scrap Bunch Maker Name Role Phone Unavailable Primary Care Provider [...] Description 09/09/2025 4:00 PM EDT Office Visit [facility] [address] [place] [address] Nicole Tatum, EVON [address] [place] [address] documented as of this encounter Goals Goal [...]
--- NOTE | 2025-07-25 15:03 | HM_ITS ---
Conclusion: 1. Patient was monitored for total period of 2 days 2. Baseline was normal sinus rhythm with average heart of 86 beats per minute 3. No significant arrhythmias or pauses noted 4. Patient marked the counter 6 times with symptoms of chest tightness/palpitations correlating with sinus rhythm or sinus tachycardia MTDD
--- OUTSIDE RECORDS SUMMARY | 2025-07-25 15:03 | XMS_ITS | Clinical Summary ---
Author Organization [facility] Address [address] [place] [address] Phone Care Team Providers Care Oncology Research Rn Name Role Phone Prabhakar Funk MD Primary Care Provider [phone] Dewayne Hernandez Unavailable Prabhakar Funk MD Unavailable [phone] Ofelia Nelson Unavailable Social History Tobacco [...] Description 09/08/2025 8:45 AM EDT Office Visit [facility] Orthopedics and Sports Medicine Department [address] [place] [phone] Juan Dumont MD [address] [facility] [address] [place] [address] Health Maintenance Due Date Last Done Comments [...] patient's age to complete this topic [place] [address] [place] [address] PLAN Care Teams Oncology Research Rn Relationship Specialty Start Date End Date Prabhakar Funk MD [address] [phone] PCP - General 04/01/[address] [place] [phone] PCP - Insurance PCP 01/01/24 Prabhakar Funk MD [address] [place] [phone] PCP - Clinical PCP 01/01/24 Ofelia Nelson [address] [place] [phone] PCP - Insurance Identified PCP 10/21/24
--- OUTSIDE RECORDS SUMMARY | 2025-07-25 15:03 | XMS_ITS | Encounter Summary ---
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 [...] AT function are intact. No significant quad atrophy.Sensation is intact in the deep peroneal, superficial peroneal, sural, saphenous, tibial distributions and she has palpable DP pulse. ?? Imaging: Patient had a recent right knee MRI at [facility] on 03/11/2021. This confirms complete ACL rupture [...] on filedocumented in this encounter Care Teams Assistant Curator Relationship Specialty Start Date End Date Pradeep Sotelo MD [address] [place] [address] PCP - General Adolescent Medicine 03/05/21 documented as of this encounter Additional Source Comments The information contained in this document represents components of the legal health record. It is not the complete legal health record.[facility]
--- OUTSIDE RECORDS SUMMARY | 2025-07-25 15:03 | XMS_ITS | Clinical Summary ---
Author Organization [facility] Address [address] [facility] [address] [place], [place] [id number] Phone Care Team Providers Care Hair Spinning Machine Operator Name Role Phone Pradeep Sotelo MD Primary Care Provider [phone] Allergies No known active allergies Medications prochlorperazin [...] Recently Relevant to Health Maintenance Results * [place] level (11/06/2021 6:31 PM EST) LITHIUM 0.52 0.50 - 1.20 mmol/L [facility] Blood 11/06/2021 6:31 PM EST 11/06/2021 6:43 PM EST us Lupillo Herbert MD LAB BLOOD ORDERABLES Final Resu lt Performing Organization Address [facility] Co de Phone Number [facility] [address] [place] [address] * (ABNORMAL) Basic metabolic panel (11/06/2021 6:31 PM EST) SODIUM 141 136 - 145 mmol/L [facility] CHLORIDE 107(H) 95 - 106 mmol/L [facility] POTASSIUM 4.5 3.5 - 5.2 mmol/L [facility] CO2 25 20 - 31 mmol/L [facility] BUN 6(L) 9 - 23 mg/dL [facility] CREATININE 0.62 0.50 - 1.30 mg/dL [facility] GLUCOSE 117(H) 74 - 106 mg/dL [facility] CALCIUM 9.3 8.7 - 10.4 mg/dL [facility] EGFR >120 >60 mL/min/1.7 3m2 [facility] Comment:Estimated glomerular filtration rate calculated using the CKD-EPI refit equation. ANION GAP 9 3 - 17 mmol/L [facility] Blood 11/06/2021 6:31 PM EST 11/06/2021 6:43 PM EST us Lupillo Herbert MD LAB BLOOD ORDERABLES Final Resu lt Performing Organization Address [facility]/ZIP Co de Phone Number [facility] [address] [place] [address] from Last 3 Months or Most Recently Relevant to Health Maintenance [place] [address] [place] [address] [place] [address] [place] [address] [place] [address] [place] [address] [address] [place] [address] [place] [address] [place] [address] [place] [address] [place] [address] Care Teams Hair Spinning Machine Operator Relationship Specialty Start Date End Date Pradeep Sotelo MD [address] [place] [address] PCP - General Adolescent Medicine 03/05/21 Additional Source Comments The information contained in this document represents components of the legal health record. It is not the complete legal health record.[facility]
--- OUTSIDE RECORDS SUMMARY | 2025-07-25 15:03 | XMS_ITS | Clinical Summary ---
Author Organization [facility] Address [address] [place] [address] Phone Care Team Providers Care Analysis Or Research Safety Inspector Name Role Phone Ofelia Dotson MD Primary Care Provider [phone] Allergies No known active allergies Medications lamotrigine [...] Description 06/26/2025 3:00 PM EDT Office Visit [address] [address] Nicole Tatum PA Migraine without [...] Description 09/09/2025 4:00 PM EDT Office Visit [facility] [address] [facility] [address] [place] [address] Nicole Tatum PA [address] [place] [phone] Health Maintenance Due Date Last Done Comments [...] LAB CHEMISTRY METHOD 06/26/2025 8:22 PM EDT [facility] Blood Venous blood specimen / Unknown Venipuncture / Unknown 06/26/2025 3:41 PM EDT 06/26/2025 3:41 PM EDT Nicole BARNARD LAB BLOOD ORDERABLES Final R esult [facility] [address] [place] [address], [place] [phone] * Thyroid stimulating hormone (06/26/2025 3:41 PM EDT) Pathologist [facility] TSH 1.46 0.40 - 4.00 mcIU/mL LAB CHEMISTRY METHOD 06/26/2025 8:22 PM EDT [facility] Blood Venous blood specimen / Unknown Venipuncture / Unknown 06/26/2025 3:41 PM EDT 06/26/2025 3:41 PM EDT [facility] LAB BLOOD ORDERABLES Final R esult [facility] [address] [place] [address], [place] [phone] * Vitamin B12 (06/26/2025 3:41 PM EDT) Pathologist [facility] Vitamin B-12 496 250 - 900 pcg/mL LAB CHEMISTRY METHOD 06/26/2025 7:12 PM EDT [facility] Blood Venous blood specimen / Unknown Venipuncture / Unknown 06/26/2025 3:41 PM EDT 06/26/2025 3:41 PM EDT [facility] LAB BLOOD ORDERABLES Final R esult [facility] [address] [place] [address], [place] [phone] * (ABNORMAL) Comprehensive metabolic panel (06/26/2025 3:41 PM EDT) [facility] Sodium 139 133 - 145 mmol/L LAB CHEMISTRY METHOD 06/26/2025 7:12 PM EDT [facility] Potassium 4.2 3.5 - 5.5 mmol/L LAB CHEMISTRY METHOD 06/26/2025 7:12 PM EDT [facility] Chloride 109 96 - 110 mmol/L LAB CHEMISTRY METHOD 06/26/2025 7:12 PM [facility] CO2 25 21 - 32 mmol/L LAB CHEMISTRY METHOD 06/26/2025 7:12 PM [facility] Anion Gap 5 3 - 11 LAB CHEMISTRY METHOD 06/26/2025 7:12 PM [facility] Glucose 69(L) 70 - 100 mg/dL LAB CHEMISTRY METHOD 06/26/2025 7:12 PM [facility] BUN 22 5 - 25 mg/dL LAB CHEMISTRY METHOD 06/26/2025 7:12 PM [facility] Creatinine 0.79 0.50 - 1.10 mg/dL LAB CHEMISTRY METHOD 06/26/2025 7:12 PM [facility] eGFR 108 >=60 mL/min/1. 73m2 LAB CHEMISTRY METHOD 06/26/2025 7:12 PM [facility] Comment:Calculation based on the Chronic Kidney Disease Epidemiology Collaboration (CKD-EPI) equation refit without adjustment for race. BUN/Creatinine Ratio 27.8 LAB CHEMISTRY METHOD 06/26/2025 7:12 PM [facility] Calcium 9.3 8.5 - 10.5 mg/dL LAB CHEMISTRY METHOD 06/26/2025 7:12 PM [facility] AST (SGOT) 19 10 - 42 unit/L LAB CHEMISTRY METHOD 06/26/2025 7:12 PM [facility] ALT (SGPT) 35 10 - 60 unit/L LAB CHEMISTRY METHOD 06/26/2025 7:12 PM [facility] Alkaline Phosphatase 71 42 - 121 unit/L LAB CHEMISTRY METHOD 06/26/2025 7:12 PM [facility] Total Protein 7.1 6.0 - 8.0 g/dL LAB CHEMISTRY METHOD 06/26/2025 7:12 PM [facility] Albumin 4.2 3.2 - 5.0 g/dL LAB CHEMISTRY METHOD 06/26/2025 7:12 PM EDT [facility] Total Bilirubin 0.3 0.0 - 1.4 mg/dL LAB CHEMISTRY METHOD 06/26/2025 7:12 PM EDT [facility] Blood Venous blood specimen / Unknown Venipuncture / Unknown 06/26/2025 3:41 PM EDT 06/26/2025 3:41 PM EDT Nicole BARNARD LAB BLOOD ORDERABLES Final R esult [facility] [address] [place] [address], from Last 3 Months Insurance [employer] Care Teams Analysis Or Research Safety Inspector Relationship Specialty Start Date End Date Ofelia Dotson MD [address] [place] [address] [address] [place] [address] PCP - General Endocrinology 01/02/25
== END ==
LOC: HO.CARD 15:00
PROVIDERS: PCP Internal Medicine; Visit Provider Internal Medicine
DX: R00.1 Bradycardia, unspecified (principal)
CPT/HCPCS: 93225

== ENCOUNTER → 2025-07-25 15:03 | Outpatient (BNV) | payer OTHER, SELFPAY | PROVIDERS: PCP Internal Medicine; Visit Provider Internal Medicine Cardiovascular Disease | DX: R00.0 Tachycardia, unspecified (principal) | CPT/HCPCS: 93227 ==

== ENCOUNTER 2025-09-23 12:50 | Outpatient (REF) | payer OTHER, SELFPAY ==
--- OUTSIDE RECORDS SUMMARY | 2024-09-13 08:00 | XMS_ITS | Encounter Summary ---
Author Organization [facility] Address [address] [place] [address] Care Team Providers Care Radio Despatcher Name Role Phone Unavailable Primary Care Provider [...] Description 12/15/2025 11:40 AM EST Office Visit [facility] [address] [facility] [address] [place] [phone] David Caballero MD [address] [place] [address] documented as of this encounter Goals Goal [...]
--- NOTE | ~2025-09-23 | US_ITS ---
EXAMINATION: US THYROID HISTORY: E04.2 - Nontoxic multinodular goiter TECHNIQUE: Real-time grayscale ultrasound imaging was performed and images were reviewed. COMPARISON: There are no prior studies available for comparison. FINDINGS: SIZE: The right thyroid lobe measures 6.4 x 1.9 x 2.5 cm. The left thyroid lobe measures 4.1 x 1.0 x 1.1 cm. The isthmus measures 4 mm. FLOW: Flow to the gland is normal. ECHOGENICITY: The echotexture of the gland is heterogeneous. NODULES: There are multiple cystic spaces throughout the gland. No discrete nodule is identified. US/US thyroid IMPRESSION: Heterogeneous thyroid gland. No discrete nodules are identified. ACR TI-RADS Guidelines TR1 (0 points): Benign. No follow-up or biopsy required TR2 (2 points): Not Suspicious. No biopsy or follow up indicated TR3 (3 points): Mildly Suspicious. FNA if >= 2.5 cm, Follow if >= 1.5 cm TR4 (4-6 points): Moderately Suspicious. FNA if >= 1.5 cm, Follow if >= 1.0 cm TR5 (>=7 points): Highly Suspicious. FNA if >= 1.0 cm, Follow if >= 0.5 cm Electronically signed by: Jose Luis Lo MD 09/23/2025 01:41 PM EDT
--- OUTSIDE RECORDS SUMMARY | 2025-09-23 16:12 | XMS_ITS | Clinical Summary ---
Author Organization [facility] Address [address] [facility] [address] [place], [place] [address] Phone Care Team Providers Care Interpreter Deaf Name Role Phone Pradeep Sotelo MD Primary Care Provider [phone] Allergies No known active allergies Medications prochlorperazin [...] LEVEL 11/06/2022 11/06/2021 LITHIUM LEVEL 11/06/2022 11/06/2021 INFLUENZA VACCINE (#1) 2025 0, 09/15/2018 COVID-19 VACCINE (3 - 2024-2 6 season) 2025 01/05/2021, 12/15/2020 MENINGOCOCCAL VACCINES (ACWY) Completed 12/08/2017 [...] Recently Relevant to Health Maintenance Results * [place] level (11/06/2021 6:31 PM EST) LITHIUM 0.52 0.50 - 1.20 mmol/L [facility] Blood 11/06/2021 6:31 PM EST 11/06/2021 6:43 PM EST Lupillo Herbert MD LAB BLOOD ORDERABLES Final Resu lt Performing Organization Address [facility] Co de Phone Number [facility] [address] [place] [address] * (ABNORMAL) Basic metabolic panel (11/06/2021 6:31 PM EST) SODIUM 141 136 - 145 mmol/L [facility] CHLORIDE 107(H) 95 - 106 mmol/L [facility] POTASSIUM 4.5 3.5 - 5.2 mmol/L [facility] CO2 25 20 - 31 mmol/L [facility] BUN 6(L) 9 - 23 mg/dL [facility] CREATININE 0.62 0.50 - 1.30 mg/dL [facility] GLUCOSE 117(H) 74 - 106 mg/dL [facility] CALCIUM 9.3 8.7 - 10.4 mg/dL [facility] EGFR >120 >60 mL/min/1.7 3m2 [facility] Comment:Estimated glomerular filtration rate calculated using the CKD-EPI refit equation. ANION GAP 9 3 - 17 mmol/L [facility] Blood 11/06/2021 6:31 PM EST 11/06/2021 6:43 PM EST us Lupillo Herbert MD LAB BLOOD ORDERABLES Final Resu lt Performing Organization Address City/[facility]/ZIP Co de Phone Number [facility] [address] [place] [address] from Last 3 Months or Most Recently Relevant to Health Maintenance Insurance [facility] [place] [address] [address] [address] [place] [address] [place] [address] [place] [address] [place] [address] [place] [address] [place] [address] Care Teams Interpreter Deaf Relationship Specialty Start Date End Date Pradeep Sotelo MD [address] [place] [address] PCP - General Adolescent Medicine 4/9/21 Additional Source Comments The information contained in this document represents components of the legal health record. It is not the complete legal health record.[facility]
--- OUTSIDE RECORDS SUMMARY | 2025-09-23 16:12 | XMS_ITS | Clinical Summary ---
Author Organization [facility] Address [address] [place] [address] Phone Care Team Providers Care Picture Frames Inspector Name Role Phone Prabhakar Funk MD Primary Care Provider [phone] NameDewayne Unavailable Prabhakar Funk MD Unavailable [phone] Ofelia Nelson Unavailable Encounters Date Type Department Care Team Description 09/08/2025 8:45 AM EDT Office Visit [facility] Medicine Department [address] [place] [phone] Juan Dumont MD DDH (developmental dysplasia of the hip) (Primary Dx) 09/08/2025 Travel 09/07/2025 Travel from Last 3 Months Social History Tobacco Use Types Packs/Day Years [...] Pressure - - Pulse - - Temperature 36.5 C (97.7 F) 09/08/2025 9:13 AM EDT Respiratory Rate - - Oxygen Saturation - - Inhaled Oxygen Concentration - - Weight 66 kg (145 lb 8.1 oz) 09/08/2025 9:13 AM EDT Height 173 cm (5' 8.11 ) 09/08/2025 9:13 AM EDT Body Mass Index 22.05 09/08/2025 9:13 AM EDT Plan of Treatment Upcoming Encounters Date Type Department Care Team (Late st Contact Info) Description 08/31/2026 11:45 AM EDT Office Visit [facility] Department [address] [place] [phone] Juan Dumont MD [address] [place] [address] Health Maintenance Due Date Last Done Comments Chlamydia and Gonorrhea Screening 2001 HIV Screening 2001 MMR Vaccines (1 of 1 - Standard series) 2002 Anemia Screening 2013 Varicella Vaccines (1 of 2 - 13+ 2-dose series) 2014 HPV Vaccines (1 - 3-dose series) 2016 Hepatitis C Screening 2019 DTaP/Tdap/Td Vaccines (3 - Td or Tdap) 12/03/2023 06/02/2023, 06/30/2022 Meningococcal Vaccine Completed 12/08/2017 Meningococcal B Vaccine Completed 01/22/2019, 12/19 Hepatitis B Vaccines Completed 04/29/2025, 03/29/20 25 Influenza Vaccine Completed 09/04/2025, , 09/06/2023, Additional history exists HIB Vaccines Aged Out [...] patient's age to complete this topic Insurance O ACO Care Teams Picture Frames Inspector Relationship Specialty Start Date End Date Prabhakar Funk MD [address] [place] [phone] PCP - General 04/01/24 Dewayne Hernandez [address] [place] [phone] PCP - Insurance PCP 01/01/24 Prabhakar Funk MD [address] [place] [phone] PCP - Clinical PCP 01/01/24 Ofelia Nelson [address] [place] [phone] PCP - Insurance Identified PCP 10/21/24
--- OUTSIDE RECORDS SUMMARY | 2025-09-23 16:12 | XMS_ITS | Encounter Summary ---
Author Organization 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 [...] had a recent right knee MRI at [facility] on 03/11/2021. This confirms complete ACL [...] on filedocumented in this encounter Care Teams Waxed Bag Machine Operator Relationship Specialty Start Date End Date Pradeep Sotelo MD [address] [place] [address] PCP - General Adolescent Medicine 03/05/21 documented as of this encounter Additional Source Comments The information contained in this document represents components of the legal health record. It is not the complete legal health record.[facility]
--- OUTSIDE RECORDS SUMMARY | 2025-09-23 16:12 | XMS_ITS | Clinical Summary ---
Author Organization [address] [facility] Address [address] [place] [address] Phone Care Team Providers Care Surgical Resident Name Role Phone Ofelia Dotson MD Primary Care Provider [phone] Allergies No known active allergies Medications lamotrigine (LAMICTAL ORAL) Take 1 tablet by mouth 1 (one) time each day. 125MG Active Vyvanse 50 mg capsule 1 TABLET DIRECTED DAILY 4 Active lithium 300 mg capsule Take 1 capsule (300 mg total) by mouth 1 (one) time each day. 300MG DAILY AND 150MG AT NIGHT Active aspirin-acetamin ophen-caffeine (EXCEDRIN MIGRAINE) 250-250-65 mg per tablet Take 1 tablet by mouth every 6 (six) hours if needed for headaches. Active riboflavin (VITAMIN B2) 400 mg tablet Take 1 tablet (400 mg total) by mouth 1 (one) time each day. 60 tablet 2 4 Active tretinoin (RETIN-A) 0.025 % cream 5 Active ergocalciferol (VITAMIN D-2) 1,250 mcg (50,000 unit) capsule Take 1 capsule (50,000 Units total) by mouth 1 (one) time per week. 4 each 11 5 02/25/20 26 Active topiramate (Topamax) 50 mg tablet Take 1 tablet (50 mg total) by mouth 2 (two) times a day. 60 tablet 5 5 Active rimegepant (NURTEC) 75 mg dispersible tabletIndication s:Migraine without aura and without status migrainosus, not intractable Take 1 tablet (75 mg total) by mouth 1 (one) time if needed for migraine. 9 tablet 5 5 10/21/20 Active topiramate (TOPAMAX) 25 mg tablet Take 1 tablet (25 mg total) by mouth 1 (one) time each day for 7 days, THEN 1 tablet (25 mg total) 2 (two) times a day for 14 days, THEN 2 tablets (50 mg total) 2 (two) times a day. 155 each 5 09/09/20 Discontinu ed(Therapy completed) doxycycline (MONODOX) 50 mg capsule 5 09/09/20 Discontinu ed(Therapy completed) Active Problems Problem Noted Date Diagnosed Date [...] Encounters Date Type Department Care Team Description 09/09/2025 4:00 PM EDT Office Visit [facility] [address] [facility] [address] [place] [phone] Nicole Tatum PA Migraine without aura and without status migrainosus, not intractable (Primary Dx) 06/26/2025 3:00 PM EDT Office Visit [facility] [address] [facility] [address] [place] [phone] Nicole Tatum PA Migraine without aura and without status migrainosus, not intractable (Primary Dx) from Last 3 Months Immunizations Immunization Administration Dates Next Due Influenza Quadravalent, MDCK [...] Sign Reading Time Taken Comments Blood Pressure 129/81 09/09/2025 4:00 PM EDT Pulse 84 09/09/2025 4:00 PM EDT Temperature 35.9 C (96.7 F) 09/09/2025 4:00 PM EDT Respiratory Rate - - Oxygen Saturation 97% 09/09/2025 4:00 PM EDT Inhaled Oxygen Concentration - - Weight 65.8 kg (145 lb) 06/26/2025 3:05 PM EDT Height 172.7 cm (5' 8 ) 06/26/2025 3:05 PM EDT Body Mass Index 22.05 06/26/2025 3:05 PM EDT Plan of Treatment Upcoming Encounters Date Type Department Care Team (Late st Contact Info) Description 12/15/2025 11:40 AM EST Office Visit [facility] [address] [facility] [address] [place] [phone] David Caballero MD [address] [place] [address] Health Maintenance Due Date Last Done Comments Gonorrhea/Chlamydia Screening 2001 HPV Vaccines (1 - 3-dose series) 2016 Cervical Cancer Screening: Pap Smear 2022 HIV Screening 09/04/2024 Hepatitis C Screening 09/04/2024 Social Influencers of Health Screening 09/04/2024 Depression Screening 11/27/2024 DTaP,Tdap,and Td Vaccines (3 - Td or Tdap) 06/02/2033 06/02/2023, 06/30/2022 RSV Immunization Adult Patients (1 - 1-dose 75+ series) 2076 Meningococcal ACWY Vaccine Completed 12/08/2017 Meningococcal B Vaccine Completed 01/22/2019, 12/19 COVID-19 Vaccine Completed 08/21/2024, 09/2023, 09/25/2022, Additional history exists Hepatitis B Vaccines Completed 04/29/2025, 03/29/20 25 [...] LAB CHEMISTRY METHOD 06/26/2025 8:22 PM EDT [facility] Blood Venous blood specimen / Unknown Venipuncture / Unknown 06/26/2025 3:41 PM EDT 06/26/2025 3:[address] BLOOD ORDERABLES Final R esult [facility] [address] [place] [address], [place] [phone] * Thyroid stimulating hormone (06/26/2025 3:41 PM EDT) Pathologist [facility] TSH 1.46 0.40 - 4.00 mcIU/mL LAB CHEMISTRY METHOD 06/26/2025 8:22 PM EDT [facility] Blood Venous blood specimen / Unknown Venipuncture / Unknown 06/26/2025 3:41 PM EDT 06/26/2025 3:[address] [facility] [place] LAB BLOOD ORDERABLES Final R esult [facility] [address] [place] [address], [place] [phone] * Vitamin B12 (06/26/2025 3:41 PM EDT) Pathologist [facility] Vitamin B-12 496 250 - 900 pcg/mL LAB CHEMISTRY METHOD 06/26/2025 7:12 PM EDT [facility] Blood Venous blood specimen / Unknown Venipuncture / Unknown 06/26/2025 3:41 PM EDT 06/26/2025 3:41 PM EDT Nicole BARNARD LAB BLOOD ORDERABLES Final R esult [facility] [address] [place] [address], * (ABNORMAL) Comprehensive metabolic panel (06/26/2025 3:41 PM EDT) Sodium 139 133 - 145 mmol/L LAB CHEMISTRY METHOD 06/26/2025 7:12 PM EDT [facility] Potassium 4.2 3.5 - 5.5 mmol/L LAB CHEMISTRY METHOD 06/26/2025 7:12 PM [facility] Chloride 109 96 - 110 mmol/L [...] LAB CHEMISTRY METHOD 06/26/2025 7:12 PM EDT [facility] AST (SGOT) 19 10 - 42 unit/L LAB CHEMISTRY METHOD 06/26/2025 7:12 PM EDT [facility] ALT (SGPT) 35 10 - 60 unit/L LAB CHEMISTRY METHOD 06/26/2025 7:12 PM EDT [facility] Alkaline Phosphatase 71 42 - 121 unit/L LAB CHEMISTRY METHOD 06/26/2025 7:12 PM EDT [facility] Total Protein 7.1 6.0 - 8.0 g/dL LAB CHEMISTRY METHOD 06/26/2025 7:12 PM EDT [facility] Albumin 4.2 3.2 - 5.0 g/dL LAB CHEMISTRY METHOD 06/26/2025 7:12 PM EDT [facility] Total Bilirubin 0.3 0.0 - 1.4 mg/dL LAB CHEMISTRY METHOD 06/26/2025 7:12 PM EDT [facility] Blood Venous blood specimen / Unknown Venipuncture / Unknown 06/26/2025 3:41 PM EDT 06/26/2025 3:41 PM EDT Nicole BARNARD LAB BLOOD ORDERABLES Final R esult [facility] [address] [place] [address], from Last 3 Months Insurance [facility] Care Teams Surgical Resident Relationship Specialty Start Date End Date Ofelia Dotson MD [address] [place] [address] [address] [place] [address] PCP - General Endocrinology 01/02/25
== END 2025-09-23 12:51 | disposition home or self-care (01) ==
LOC: HO.US 12:50
PROVIDERS: PCP Internal Medicine; Visit Provider Internal Medicine
DX: E04.2 Nontoxic multinodular goiter (principal)
CPT/HCPCS: 76536

== ENCOUNTER → 2025-09-23 12:52 | Outpatient (BNV) | payer OTHER, SELFPAY | PROVIDERS: PCP Internal Medicine; Visit Provider Radiology Diagnostic Radiology | DX: E04.2 Nontoxic multinodular goiter (principal) | CPT/HCPCS: 76536 ==

== ENCOUNTER 2025-10-10 10:55 | Outpatient (REF) | payer OTHER, SELFPAY ==
--- OUTSIDE RECORDS SUMMARY | 2024-09-13 07:00 | XMS_ITS | Encounter Summary ---
Author Organization [facility] Address [address] [place] [address] Care Team Providers Care Sisal Picker Name Role Phone Unavailable Primary Care Provider [...] Description 12/15/2025 11:40 AM EST Office Visit [facility] [address] [facility] [address] [place] [phone] David Caballero MD [address] [place] [address] documented as of this encounter Goals Goal [...]
[2025-10-10 14:10] LABS: MANUAL DIFF FLAG NO
[2025-10-10 14:19] LABS: Hematocrit 40.7 % (37.0-47.0); Hemoglobin 13.3 g/dl (12.0-16.0); Imm Gran Abs Auto 0.01 X10*3/uL (0.00-0.03); Imm Gran Pct Auto 0.2 % (0.0-0.4); Lymphocytes Absolute Auto 1.9 X10*3/uL (1.2-4.9); Mean Corpuscular HGB Conc 32.7 g/dl (31.0-35.0); Mean Corpuscular Hemoglobin 30.4 pg (27.0-33.0); Mean Corpuscular Volume 93.1 fL (80.0-98.0); NRBC Abs Auto 0.000 X10*3/uL (0.0-0.012); NRBC Pct Auto 0.0 /100WBC (0.0-0.2); Platelet Count 327 X10*3/uL (160-400); Red Blood Count 4.37 X10*6/uL (4.20-5.50); White Blood Count 6.6 X10*3/uL (4.8-10.8)
[2025-10-10 14:58] LABS: Alanine Aminotransferase 28 U/L (0-31); Albumin Level 4.5 g/dL (3.5-5.0); Alkaline Phosphatase 66 U/L (39-117); Anion Gap 9 (12-20); Aspartate Amino Transferase 28 U/L (5-31); Blood Urea Nitrogen 21 mg/dL (9-16); Calcium 9.3 mg/dL (8.4-10.2); Carbon Dioxide 25 mmol/L (22-29); Chloride 113 mmol/L (96-108); Cholesterol 172 mg/dL (<200); Estimated Glomerular Filt Rate > 60; HDL Cholesterol 65 mg/dL (>40); Iron 59 mcg/dL (30-160); Percent Iron Saturation 19 % (15-50); Potassium 3.5 mmol/L (3.3-5.1); Sodium 143 mmol/L (135-145); Total Iron Binding Capacity 306 mcg/dL (228-428); Total Protein 7.0 g/dL (6.5-8.0); Triglycerides 63 mg/dL (<150); Unsaturated Iron Binding 247 ug/dL
--- OUTSIDE RECORDS SUMMARY | 2025-10-10 18:11 | XMS_ITS | Clinical Summary ---
Author Organization [facility] Address [address] [facility] [address] [place], [place] [id number] Phone Care Team Providers Care Care Management Associate Name Role Phone Pradeep Sotelo MD Primary Care Provider [phone] Allergies No known active allergies Medications prochlorperazin [...] patient's age to complete this topic IPV VACCINES Aged Out No longer eligi ble based on patient's age to complete this topic PNEUMOCOCCAL VACCINES (0-49 years) Aged Out No longer eligible b ased on patient's age to complete this topic Medical Devices Not on file Procedures Procedure Name Priority Date/Time Associated Diagnosis Comments LITHIUM LEVEL STAT 11/06/2021 6:31 PM EST BASIC METABOLIC PANEL (BMP) STAT 11/06/2021 6:31 PM EST from Last 3 Months or Most Recently Relevant to Health Maintenance Results * [place] level (11/06/2021 6:31 PM EST) LITHIUM 0.52 0.50 - 1.20 mmol/L [facility] Blood 11/06/2021 6:31 PM EST 11/06/2021 6:43 PM EST us Lupillo Herbert MD LAB BLOOD BKR ORDERABLES Final Result Performing Organization Address [facility] Co de Phone Number [facility] [address] [place] [address] * (ABNORMAL) Basic metabolic panel (11/06/2021 6:31 PM EST) SODIUM 141 136 - 145 mmol/L [facility] CHLORIDE 107(H) 95 - 106 mmol/L [facility] POTASSIUM 4.5 3.5 - 5.2 mmol/L [facility] CO2 25 20 - 31 mmol/L [facility] BUN 6(L) 9 - 23 mg/dL [facility] CREATININE 0.62 0.50 - 1.30 mg/dL [facility] GLUCOSE 117(H) 74 - 106 mg/dL [facility] CALCIUM 9.3 8.7 - 10.4 mg/dL [facility] EGFR >120 >60 mL/min/1.7 3m2 [facility] Comment:Estimated glomerular filtration rate calculated using the CKD-EPI refit equation. ANION GAP 9 3 - 17 mmol/L [facility] Blood 11/06/2021 6:31 PM EST 11/06/2021 6:43 PM EST us Lupillo Herbert MD LAB BLOOD BKR ORDERABLES Final Result Performing Organization Address City/[facility]/ZIP Co de Phone Number [facility] [address] [place] [address] from Last 3 Months or Most Recently Relevant to Health Maintenance Insurance [facility] [place] [address] [place] [address] PCC [facility] [place] [address] [place] [address] [place] [address] [place] [address] [place] [address] [place] [address] PCC Care Teams Care Management Associate Relationship Specialty Start Date End Date Pradeep Sotelo MD [address] [place] [address] PCP - General Adolescent Medicine 03/05/21 Additional Source Comments The information contained in this document represents components of the legal health record. It is not the complete legal health record.[facility]
--- OUTSIDE RECORDS SUMMARY | 2025-10-10 18:11 | XMS_ITS | Encounter Summary ---
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 [...] had a recent right knee MRI at [facility] on 03/11/2021. This confirms complete ACL [...] on filedocumented in this encounter Care Teams Register Of Wills Relationship Specialty Start Date End Date Pradeep Sotelo MD [address] [place] [address] PCP - General Adolescent Medicine 03/05/21 documented as of this encounter Additional Source Comments The information contained in this document represents components of the legal health record. It is not the complete legal health record.[facility]
--- OUTSIDE RECORDS SUMMARY | 2025-10-10 18:11 | XMS_ITS | Clinical Summary ---
Author Organization [address] [facility] Address [address] [place] [address] Phone Care Team Providers Care Cra Officer Name Role Phone Ofelia Dotson MD Primary Care Provider [phone] Allergies No known active allergies Medications lamotrigine [...] 4 each 11 5 02/25/20 26 Active rimegepant (NURTEC) 75 mg dispersible tabletIndication s:Migraine without aura and without status migrainosus, not intractable Take 1 tablet (75 mg total) by mouth 1 (one) time if needed for migraine. 9 tablet 5 5 10/21/20 25 Active topiramate (Topamax) 50 mg tablet Take 1 tablet (50 mg total) by mouth 2 (two) times a day. 60 tablet 5 5 Active topiramate (Topamax) 50 mg tablet Take 1 tablet (50 mg total) by mouth 2 (two) times a day. 60 tablet 5 5 10/03/20 25 Discontinu ed(Reorder ) Active Problems Problem Noted Date Diagnosed Date [...] Description 09/09/2025 4:00 PM EDT Office Visit [facility] [address] [place] [address] Nicole Tatum PA Migraine without aura [...] Description 12/15/2025 11:40 AM EST Office Visit [facility] [address] [facility] [address] [place] [address] David Caballero MD [address] [place] [address] Health Maintenance Due Date Last Done Comments Gonorrhea/Chlamydia Screening 2001 HPV Vaccines (1 - 3-dose series) 2016 Cervical Cancer Screening: Pap Smear 2022 HIV Screening 09/04/2024 Hepatitis C Screening 09/04/2024 Social Influencers of Health Screening 09/04/2024 Depression Screening 11/27/2024 COVID-19 Vaccine ( season) 2025 08/21/2024, 09/06/2023, 09/25/2022, Additional history exists DTaP,Tdap,and Td Vaccines (3 - Td or Tdap) 06/02/2033 06/02/2023, 06/30/2022 RSV Immunization Adult Patients (1 - 1-dose 75+ series) 2076 Meningococcal ACWY Vaccine Completed 12/08/2017 Meningococcal B Vaccine Completed 01/22/2019, 12/19 Hepatitis B Vaccines Completed 04/29/2025, 03/29/20 Influenza Vaccine Completed 09/04/2025, , 09/06/2023, Additional [...] Pt will be independent with HEP -met Insurance [facility] Care Teams Cra Officer Relationship Specialty Start Date End Date Ofelia Dotson MD [address] [place] [phone] PCP - General Endocrinology 01/02/25
--- OUTSIDE RECORDS SUMMARY | 2025-10-10 18:11 | XMS_ITS | Clinical Summary ---
Author Organization [facility] Address [address] [place] [address] Phone Care Team Providers Care Weather Algorithm Scientist Name Role Phone Prabhakar Funk MD Primary Care Provider [phone] NameDewayne Unavailable Prabhakar Funk MD Unavailable Ofelia Nelson Unavailable Encounters Date Type Department Care Team Description 09/08/2025 8:45 AM EDT Office Visit [facility] Department [address] [place] [phone] Juan Dumont MD DDH (developmental dysplasia of [...] Description 08/31/2026 11:45 AM EDT Office Visit [facility] Department [address] [place] [address] Juan Dumont MD [address] [place] [address] Health Maintenance Due Date Last Done Comments [...] this topic Insurance O ACO Care Teams Weather Algorithm Scientist Relationship Specialty Start Date End Date Prabhakar Funk MD [address] [place] [phone] PCP - General 04/01/24 Dewayne Hernandez [address] [place] [address] PCP - Insurance PCP 01/01/24 Prabhakar Funk MD [address] [place] [phone] PCP - Clinical PCP 01/01/24 Ofelia Nelson [address] [place] [phone] PCP - Insurance Identified PCP 10/21/24
== END 2025-10-10 10:56 | disposition home or self-care (01) ==
LOC: HO.WFDLDS 10:55
PROVIDERS: PCP Internal Medicine; Visit Provider Internal Medicine
DX: Z00.00 Encounter for general adult medical examination without abnormal findings (principal); E04.2 Nontoxic multinodular goiter; G43.909 Migraine, unspecified, not intractable, without status migrainosus; R00.1 Bradycardia, unspecified; F98.8 Other specified behavioral and emotional disorders with onset usually occurring in childhood and adolescence; R35.89 Other polyuria; R00.2 Palpitations; F31.9 Bipolar disorder, unspecified
CPT/HCPCS: 36415; 80053; 80061; 83540; 84443; 85025; 86376; 96127; 99395

== ENCOUNTER 2025-10-10 10:55 | Outpatient (AMB) | payer OTHER, SELFPAY ==
--- NOTE | 2025-10-10 11:01 | A.OFFPC_ITS ---
Vital Signs 10/10/25 11:02 Height 5 ft 6.54 in Weight 146 lb 8 oz BMI 23.3 BP 116/72 Blood Pressure Location Rt brachial Position Sitting Respiration 12 Pulse 78 Pulse Source Pulse Oximeter Temp 98.1 F Temp Source Oral Pulse Oximetry (%) 100 Oxygen Delivery Method Room Air Intake Visit Reasons: cpe Intake Note: Physical Area Director Required: No Allergies No Known Allergies Allergy (Verified 10/10/25 11:04) Tobacco use date assessed: 07/22/25 Dental Screening Dental Screen Date: 07/22/25 HPI HPI Comments History of Present Illness Details The patient is a 25 year old female with a past medical history of ADD, bipolar disorder, migraines, palpitations, acne presenting for CPE CV: Still having palpitations. Has upcoming cardiology appointment. : Follows with [facility]. On vyvanse and lithium, lamital, topamax Migraines- 3x/month. Has to call out of work. Excedrin provides some relief. No aura. General right periorbital, temporal, parietal distribution. Sees neurology [facility]. Topamax prophylaxis Heterogenous thyroid on us. Acne-Previously seen by derm. Did not tolerate doxycycline. Requests refill of tretinoin Sees gynecology-last seen 11/01/24. She will call to schedule an appointment Dentist [facility]. Jessica 05/2023. ROS see HPI PHYSICAL EXAM: GENERAL: Alert and oriented x 3. NAD EYES: EOMI. Anicteric. HENT: Moist mucous membranes. No scleral icterus. Heterogenous thyroid LUNGS: Clear to auscultation bilaterally. CARDIOVASCULAR: Regular rate and rhythm. No JVD. ABDOMEN: Soft, non-tender +bs EXTREMITIES: No edema. Non-tender. SKIN: No rashes or lesions. Warm. NEUROLOGIC: No focal neurological deficits. CN II-XII grossly intact PSYCHIATRIC: Cooperative. 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 1. Little interest or pleasure in doing things: several days 2. Feeling down, depressed, or hopeless: several days 3. Trouble falling or staying asleep, or sleeping too much: more than half the days 4. Feeling tired or having little energy: more than half the days 5. Poor appetite or overeating: not at all 6. Feeling bad about yourself - or that you are a failure or have let yourself or your family down: not at all 7. Trouble concentrating on things, such as reading the newspaper or watching television: several days 8. Moving or speaking so slowly that other people could have noticed. Or the opposite - being so fidgety or restless that you have been moving around a lot more than usual: not at all 9. Thoughts that you would be better off or of hurting yourself in some way: not at all Total score: 7 Depression Screening Interpretation: Positive Depression Screening Follow-up: Existing condition and In treatment Depression Screening Done: Yes 19665 - PHQ-9 Billing: Yes Source: Developed by Drs. Jose Luis Tijerina, Mansi Gan, Edgard Dorsey and colleagues, with an educational kelvin from [employer]. Thrive Questionnaire Date Thrive assessed: 10/10/25 I am a: Patient What is your living situation today?: I have a steady place to live Within the past 12 months, did the food you bought not last and you didn't have the money to get more?: Never true Within the past 12 months, did you worry whether your food would run out before you got money to buy more?: Never true Do you have trouble paying for medicines?: No Do you have trouble getting transportation to medical appointments?: No Do you have trouble paying your heating and electricity bill?: No Do you have trouble taking care of your child, family member or friend?: No Do you have trouble with day-to-day activities such as bathing, preparing meals, shopping, managing finances, etc.?: No Are you currently unemployed and looking for a job?: No Are you interested in more education?: No Please select the resources that you would like help with: None Currently or been in a relationship where the following occur: No concerns reported THRIVE Score: 0 AUDIT C Alcohol Use Questionnaire (AUDIT-C) 1. How often do you have a drink containing alcohol?: Monthly or less 2. How many drinks containing alcohol do you have on a typical day when you are drinking?: 1 or 2 3. How often do you have six or more drinks on one occasion?: Never Total Score: 1 JESSICA-7 AMB Questionnaire JESSICA-7 Date JESSICA - 7 assessed: 10/10/25 Feeling nervous, anxious, or on edge: 2 = More than half the days Not being able to stop or control worryin = More than half the days Worrying too much about different things: 3 = Nearly every day Trouble relaxin = Several days Being so restless that it is hard to sit still: 0 = Not at all Becoming easily annoyed or irritable: 1 = Several days Feeling afraid as if something awful might happen: 1 = Several days Total JESSICA-7 score (0-4 normal; 5-9 mild; 10-14 moderate; 15-21 severe): 10 Source: Developed by Drs. Jose Luis Tijerina, Mansi Gan, Edgard Dorsey and colleagues, with an educational kelvin from [employer]. JESSICA-7 Assessment Billing JESSICA-7 Assessment Tool: JESSICA-7 Assessment 52742 Physical exam (Primary Care) Vital Signs: Last Vital Signs Temp 98.1 F 10/10/25 11:02 Pulse 78 10/10/25 11:02 Resp 12 10/10/25 11:02 BP 116/72 10/10/25 11:02 Pulse Ox 100 10/10/25 11:02 Oxygen Delivery Method Room Air 10/10/25 11:02 BMI result Body Mass Index 23.3 Tobacco/Smoking Status: Tobacco use Status Tobacco use date assessed 07/22/25 10/10/25 11:09 Patient Tobacco Use Status Never used Tobacco 10/10/25 11:09 e-Cigarette/Vaping Use Never Used 10/10/25 11:09 Depression Screening Interpretation: Positive Depression Screening Follow-up: Existing condition and In treatment Thrive Assessment: Date of Thrive Assessment Date Thrive assessed 07/19/25 10/10/25 11:09 Currently or been in a relationship where the following occur: No concerns reported Coding Level of Care Code Est Pt Prev Care 18-39y(07847) Diagnoses Physical exam Z00.00 Palpitations R00.2 Bipolar affective disorder, remission status unspecified F31.9 Active/Remission status: remission status unspecified Additional Codes JESSICA-7 Assessment Billing - JESSICA-7 Assessment Tool: JESSICA-7 Assessment 91059 ([id number]) PHQ-9 - 34610 - PHQ-9 Billing: Yes ([id number]) Assessment & Plan Assessment & Plan (1) Physical exam: Code(s): Z00.00 - Encounter for general adult medical examination without abnormal findings (2) Palpitations: Code(s): R00.2 - Palpitations Category: Medical (3) Bipolar disorder: Code(s): F31.9 - Bipolar disorder, unspecified Category: Medical Qualifiers: Active/Remission status: remission status unspecified Qualified Code(s): F31.9 - Bipolar disorder, unspecified Plan 25 year old female presenting for CPE Interval history reviewed preventive measures for age discussed BH-stable on current medications Acne-tretinoin sent. otc mateus peroxide Valrex prn cold sore Palpitations-cardiology visit pending Orders: Orders Thyroid Peroxidase Antibodies Today E04.2 - Nontoxic multinodular goiter, F98.8 - Other specified behavioral and emotional disorders with onset usually occurring in childhood and adolescence, G43.909 - Migraine, unspecified, not intractable, without status migrainosus, R00.1 - Bradycardia, unspecified, R35.89 - Other polyuria IRON PROFILE Today E04.2 - Nontoxic multinodular goiter, F98.8 - Other specified behavioral and emotional disorders with onset usually occurring in childhood and adolescence, G43.909 - Migraine, unspecified, not intractable, without status migrainosus, R00.1 - Bradycardia, unspecified, R35.89 - Other polyuria Lipid Panel Today E04.2 - Nontoxic multinodular goiter, F98.8 - Other specified behavioral and emotional disorders with onset usually occurring in childhood and adolescence, G43.909 - Migraine, unspecified, not intractable, without status migrainosus, R00.1 - Bradycardia, unspecified, R35.89 - Other polyuria TSH reflex Free T4 Today E04.2 - Nontoxic multinodular goiter, F98.8 - Other specified behavioral and emotional disorders with onset usually occurring in childhood and adolescence, G43.909 - Migraine, unspecified, not intractable, without status migrainosus, R00.1 - Bradycardia, unspecified, R35.89 - Other polyuria Comprehensive Met. Panel Today E04.2 - Nontoxic multinodular goiter, F98.8 - Other specified behavioral and emotional disorders with onset usually occurring in childhood and adolescence, G43.909 - Migraine, unspecified, not intractable, without status migrainosus, R00.1 - Bradycardia, unspecified, R35.89 - Other polyuria Complete Blood Count Auto Diff Today E04.2 - Nontoxic multinodular goiter, F98.8 - Other specified behavioral and emotional disorders with onset usually occurring in childhood and adolescence, G43.909 - Migraine, unspecified, not intractable, without status migrainosus, R00.1 - Bradycardia, unspecified, R35.89 - Other polyuria Medications: New tretinoin 0.1% 1 appl topical BEDTIME 45 grams 3RF valacyclovir (Valtrex) 2,000 mg (2 x 1 gram) PO BID 20 tabs 3RF
[2025-10-10 11:02] VITALS: BP 116/72; PULSE 78; RESP 12; TEMP 36.7; O2SAT 100; BMI 23.3
== END 2025-10-10 11:36 | disposition home or self-care (01) ==
LOC: HO.HMCFM 10:55
PROVIDERS: PCP Internal Medicine; Visit Provider Internal Medicine
DX: Z00.00 Encounter for general adult medical examination without abnormal findings (principal); R00.2 Palpitations; F31.9 Bipolar disorder, unspecified

== ENCOUNTER 2025-11-25 13:56 | Outpatient (AMB) | payer OTHER, SELFPAY ==
--- OUTSIDE RECORDS SUMMARY | 2024-09-13 07:00 | XMS_ITS | Encounter Summary ---
Author Organization [facility] Address [address] [place] [address] Care Team Providers Care Entry Level Software Developer Name Role Phone Unavailable Primary Care Provider Unavailabl e Encounter Details Date Type Department Care Team (Late st Contact Info) Description 09/13/2024 8:00 AM EDT Hospital Encounter TH HISTORIC ENCOUNTERS EASTERN CONVERSION ONLY Social History Tobacco Use Types Packs/Day Years Used Date Smoking Tobacco: Never Passive Smoke Exposure: Never Smokeless Tobacco: Never Comments Unknown Sex and Gender Information Value Date Recorded Sex Assigned at Female 12/13/2024 8:39 AM EST Legal Sex Female 3:39 PM EDT Gender Identity Female 12/13/2024 8:39 AM EST Sexual Orientation Choose not to disclose 2024 8:39 AM EST documented as of this encounter Plan of Treatment Upcoming Encounters Date Type Department Care Team (Late st Contact Info) Description 12/15/2025 11:40 AM EST Office Visit [facility] [address] [facility] [address] [place] [phone] David Caballero MD [address] [place] [address] documented as of this encounter Goals Goal Patient Goal Type Associated Problems Recent Progress Patient-Stated? Author LTGs General No Jose Luis Ramos, PT Note: Pt will light jog on treadmill x15 min with no right hip pain - not met Pt will complete 10 squats with thigh parallel to floor with no right hip pain - Met Pt will report completing modified gym routine x45 min without right hip pain - met Pt will be independent with HEP -met documented as of this encounter Visit Diagnoses Not on filedocumented in this encounter
[2025-11-25 14:13] VITALS: BP 110/72; PULSE 87; BMI 23.9
--- NOTE | 2025-11-25 14:13 | A.OFFVIS_ITS ---
Vital Signs 11/25/25 14:13 Height 5 ft 6.4 in Weight 149 lb 14.629 oz BMI 23.9 BP 110/72 Blood Pressure Location Lt brachial Position Sitting Pulse 87 Pulse Source Pulse Oximeter Intake Visit Reasons: AGRICULTURAL SYSTEMS SPECIALIST/O'Gonzalez/Bradycardia/Palpitations Apartment Leasing Consultant Required: No Allergies No Known Allergies Allergy (Verified 11/25/25 14:16) Medication List - Last Reconciled 11/25/25 by DEBRA Lamas ergocalciferol (vitamin D2) (Vitamin D2) 1,250 mcg PO QWEEK lamotrigine 150 mg PO DAILY lisdexamfetamine (Vyvanse) 40 mg PO QAM lithium carbonate 450 mg (1.5 x 300 mg) PO DAILY [magnesiium 400 PO] topiramate (Topamax) 50 mg PO BID PRN tretinoin 0.025% appl topical BEDTIME tretinoin 0.1% 1 appl topical BEDTIME valacyclovir (Valtrex) 2,000 mg (2 x 1 gram) PO BID [vitamin b12 400 mg PO] HPI Comments Details: History of Present Illness The patient is a 25-year-old female presenting for a cardiology consultation for bradycardia and heart palpitations. She reports the onset of symptoms around March, including palpitations, episodes of her heart rate dropping to the low 40s, and some chest pain. The palpitations occur almost daily and feel like her heart is skipping a beat, sometimes accompanied by a sensation of having the wind knocked out of her and feeling woozy or tired. She reports observing her heart rate drop to the low 40s on her watch daily, episodes are usually brief. The chest pain is less frequent, occurring about once or twice a week, described as a random, sharp shooting pain that is not ass ociated with food and can happen at rest or with activity. She denies fainting but had a presyncopal episode a couple of years ago. Past medical history is significant for bipolar disorder, ADD, and migraines. She is not taking any cardiac or heart rate-slowing medications. Family history is notable for diabetes and a grandfather with high cholesterol and high blood pressure, but no known history of heart attacks, pacemakers, or sudden cardiac . Socially, the patient is a first-year [employer] student, denies smoking or routine alcohol use. 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 Results - EKG (08/01/2025): Showed sinus rhythm with sinus arrhythmia, rate 77 bpm. - Holter monitor (07/25/2025): Showed sinus rhythm and sinus tachycardia with an average heart rate of 86 bpm, maximum heart rate of 152 bpm, lowest heart rate of 52 bpm, and rare premature ventricular contractions (PVCs). 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 Current occupational exposures/hazards: No Cognitive needs: No Hearing needs: No Vision needs: Yes (glasses) Review of Systems Const All systems reviewed & are unremarkable except as noted in HPI and below ENT Denies dizziness Card Details: heart palpitations - heart slow on smart watch Reports chest pain, Reports chest pain at rest, Reports chest pain with activity, Denies rapid heart rate, Denies pedal edema, Denies edema, Denies leg edema, Denies lightheadedness, Denies palpitations, Denies dyspnea, Denies dyspnea on exertion and Denies orthopnea Resp Denies cough, Denies dyspnea and Denies dyspnea on exertion GI Denies hematochezia and Denies change in stool character Musc Denies abnormal gait, Reports limited range of motion, Reports muscle cramps, Denies muscle weakness, Denies numbness, Denies radiating pain into limb, Denies stiffness and Denies tingling Neuro Denies abnormal gait, Denies dizziness, Denies numbness and Denies tingling Endo Denies palpitations Physical Exam Vital Signs: Last Vital Signs Pulse 87 11/25/25 14:13 BP 110/72 11/25/25 14:13 BMI result Body Mass Index 23.9 Const General: cooperative, healthy appearing, comfortable and no acute distress Orientation/consciousness: patient oriented x3 Resp Effort & Inspection: normal respiratory effort Auscultation: clear to auscultation bilaterally, no rales, no rhonchi and no wheezes Cardio Rate: regular rate Rhythm: regular rhythm Heart sounds: S1 normal heart sound present, S2 normal heart sound present, no gallops, no murmurs and no rubs Neuro General: patient oriented x3 Extrem General: Yes normal to inspection, No no pedal edema and No calf tenderness Psych Appearance: grossly normal Mental Status: mental status grossly normal Speech and movement: Normal speech and movement present Assessment & Plan Assessment & Plan (1) Bradycardia: Code(s): R00.1 - Bradycardia, unspecified Category: Medical (2) Palpitations: Code(s): R00.2 - Palpitations Category: Medical (3) Atypical chest pain: Code(s): R07.89 - Other chest pain Category: Medical Plan Plan 1. Atypical Chest Pain The patient's chest pain is considered atypical for cardiac angina, given its random and sharp nature, her young age, and lack of consistent association with physical activity. The likelihood of a true cardiac origin is low, with musculoskeletal causes being more probable. To provide reassurance and formally rule out an ischemic etiology, an exercise stress test has been ordered. This test will evaluate for signs of heart strain and correlate any symptoms with EKG changes or arrhythmias during exertion. 2. Palpitations And Bradycardia The patient's Holter monitor did not reveal significant bradycardia, with a low rate of 52 bpm, which is considered normal, especially during sleep. Her symptoms of palpitations and skipped beats are likely attributable to the rare PVCs noted on the monitor. The low rates on her personal watch may be inaccurate or could be misinterpreting the compensatory pause following a PVC. It was recommended that she consider using a KardiaMobile device to capture rhythm strips during symptomatic episodes for better correlation. No further heart monitoring is planned at this time. Follow-up will be on an as-needed basis, with instructions to report worsening symptoms such as presyncope or fainting. Discussion Notes I discussed with the patient that her recent Holter monitor results were reassu ring and did not show significant bradycardia; the lowest heart rate of 52 was likely during sleep and is normal. I explained that her sensation of skipped beats likely corresponds to the rare PVCs seen on the monitor, and the low heart rates reported by her watch may be inaccurate or a miscalculation during the pause after a PVC. Regarding her chest pain, I noted that its characteristics are not typical for cardiac angina, and the probability of a true cardiac cause is low given her age and lack of risk factors. To provide reassurance and definitively evaluate this, I recommended an exercise stress test, which she agreed to. I also suggested she could use a KardiaMobile device to capture her heart rhythm during symptoms for better correlation. We agreed on an as-needed follow-up plan, and I advised her to seek immediate care for any new symptoms like presyncope, syncope, or if a device records significant low rates. Patient Instructions - An exercise stress test will be scheduled to evaluate your chest pain. The hospital's central scheduling will call you to set up the appointment. - You may consider purchasing a KardiaMobile device, available online, to record your heart rhythm when you experience palpitations. These recordings can be shared with your provider if you have concerns. - Follow up in the office on an as-needed basis if your symptoms change or worsen. - Please contact us or seek medical attention if you experience new symptoms such as feeling like you are going to faint, actually fainting, or if you record a very low heart rate, <40. Patient was informed and verbally consented to the use of an ambient scribe for clinic note documentation during this visit. Visit time spent on chart review, interview, assessment, orders, documentation. Orders: Orders CA stress test Today R00.1 - Bradycardia, unspecified, R00.2 - Palpitations Coding Level of Care Code Add On Problem Visit Only Diagnoses Bradycardia R00.1 Palpitations R00.2 Atypical chest pain R07.89 Time Spent (min) 30
--- OUTSIDE RECORDS SUMMARY | 2025-11-25 17:46 | XMS_ITS | Clinical Summary ---
Author Organization [facility] Address [address] [facility] [address] [place], [place] [id number] Phone Care Team Providers Care Colors Custodian Name Role Phone Pradeep Sotelo MD Primary Care Provider [phone] Allergies No known active allergies Medications prochlorperazin [...] Recently Relevant to Health Maintenance Results * [place] level (11/06/2021 6:31 PM EST) LITHIUM 0.52 0.50 - 1.20 mmol/L [facility] Blood 11/06/2021 6:31 PM EST 11/06/2021 6:43 PM EST Lupillo Herbert MD LAB BLOOD BKR ORDERABLES Final Result Performing Organization Address [facility]/ZIP Co de Phone Number [facility] [address] [place] [address] * (ABNORMAL) Basic metabolic panel (11/06/2021 6:31 PM EST) SODIUM 141 136 - 145 mmol/L [facility] CHLORIDE 107(H) 95 - 106 mmol/L [facility] POTASSIUM 4.5 3.5 - 5.2 mmol/L [facility] CO2 25 20 - 31 mmol/L [facility] BUN 6(L) 9 - 23 mg/dL [facility] CREATININE 0.62 0.50 - 1.30 mg/dL [facility] GLUCOSE 117(H) 74 - 106 mg/dL [facility] CALCIUM 9.3 8.7 - 10.4 mg/dL [facility] EGFR >120 >60 mL/min/1.7 3m2 [facility] Comment:Estimated glomerular filtration rate calculated using the CKD-EPI refit equation. ANION GAP 9 3 - 17 mmol/L [facility] Blood 11/06/2021 6:31 PM EST 11/06/2021 6:43 PM EST Lupillo Herbert MD LAB BLOOD BKR ORDERABLES Final Result Performing Organization Address City/[facility]/ZIP Co de Phone Number [facility] [address] [place] [address] from Last 3 Months or Most Recently Relevant to Health Maintenance Insurance [facility] [place] [address] [facility] [place] [address] [place] [address] [place] [address] [place] [place] [address] [place] [address] [address] PCC Care Teams Colors Custodian Relationship Specialty Start Date End Date Pradeep Sotelo MD [address] [facility] [place] [address] PCP - General Adolescent Medicine 03/05/21 Additional Source Comments The information contained in this document represents components of the legal health record. It is not the complete legal health record.[facility]
--- OUTSIDE RECORDS SUMMARY | 2025-11-25 17:46 | XMS_ITS | Encounter Summary ---
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 [...] had a recent right knee MRI at [facility] on 03/11/2021. This confirms complete ACL [...] on filedocumented in this encounter Care Teams Commercial Collections Driver Relationship Specialty Start Date End Date Pradeep Sotelo MD [address] [place] [address] PCP - General Adolescent Medicine 03/05/21 documented as of this encounter Additional Source Comments The information contained in this document represents components of the legal health record. It is not the complete legal health record.[facility]
--- OUTSIDE RECORDS SUMMARY | 2025-11-25 17:46 | XMS_ITS | Clinical Summary ---
Author Organization [address] [facility] Address [address] [place] [address] Phone Care Team Providers Care Cigarette Roller Name Role Phone Ofelia Dotson MD Primary Care Provider [phone] Allergies No known active allergies Medications lamotrigine [...] each day. 60 tablet 2 11/08/2024 Active tretinoin (RETIN-A) 0.025 % cream 01/10/2025 Active ergocalciferol (VITAMIN D-2) 1,250 mcg (50,000 unit) capsule Take 1 capsule (50,000 Units total) by mouth 1 (one) time per week. 4 each 02/24/2025 02/25/20 26 Active topiramate (Topamax) 50 mg tablet Take 1 tablet (50 mg total) by mouth 2 (two) times a day. 60 tablet 5 10/03/2025 Active Active Problems Problem Noted Date Diagnosed [...] Description 09/09/2025 4:00 PM EDT Office Visit [address] [place] [address] Nicole Tatum PA Migraine without [...] not to disclose 2024 8:39 AM EST Last Filed Vital Signs Vital Sign Reading [...] Description 12/15/2025 11:40 AM EST Office Visit [facility] [address] [facility] [address] [place] [phone] David Caballero MD [address] [place] [address] Health Maintenance Due Date Last Done Comments Drug Screen 2001 Gonorrhea/Chlamydia Screening 2001 Non-Opioid Controlled Substance Agreement 2001 HPV Vaccines (1 - 3-dose series) [...] will be independent with HEP -met Insurance MEDICAID - [place] Care Teams Cigarette Roller Relationship Specialty Start Date End Date Ofelia Dotson MD [address] [place] [phone] PCP - General Endocrinology 01/02/25
--- OUTSIDE RECORDS SUMMARY | 2025-11-25 17:46 | XMS_ITS | Clinical Summary ---
Author Organization [facility] Address [address] [place] [address] Phone Care Team Providers Care Seed Cleaner Operator Name Role Phone Prabhakar Funk MD Primary Care Provider [phone] NameDewayne Unavailable Prabhakar Funk MD Unavailable [phone] Ofelia Nelson Unavailable Encounters Date Type Department Care Team Description 09/08/2025 8:45 AM EDT Office Visit [facility] Orthopedics and Sports Medicine Department [address] [place] [phone] Juan Dumont MD DDH (developmental dysplasia of [...] Description 08/31/2026 11:45 AM EDT Office Visit [facility] Orthopedics and Sports Medicine Department [address] [place] [phone] Juan Dumont MD [address] [place] [address] Health Maintenance Due Date Last Done Comments Chlamydia and Gonorrhea Screening 2001 HIV Screening 2001 MMR Vaccines (1 of 1 - Standard series) 2002 Anemia Screening 2013 Varicella Vaccines (1 of 2 - 13+ 2-dose series) 2014 HPV Vaccines (1 - 3-dose series) 2016 Hepatitis C Screening 2019 DTaP/Tdap/Td Vaccines (3 - Td or Tdap) 12/03/2023 06/02/2023, 06/30/2022 COVID-19 Vaccine ( season) 2025 08/21/2024, 09/06/2023, 09/25/2022, Additional history exists Meningococcal Vaccine [...] patient's age to complete this topic Insurance [address] [place], [place] [id number] Care Teams Seed Cleaner Operator Relationship Specialty Start Date End Date Prabhakar Funk MD [address] [phone] PCP - General 04/01/24 Dewayne Hernandez [address] [place] [id number] PCP - Insurance PCP 01/01/24 Prabhakar Funk MD [address] [phone] PCP - Clinical PCP 01/01/24 Ofelia Nelson [address] [place] [id number] PCP - Insurance Identified PCP 10/21/24
== END 2025-11-25 14:58 | disposition home or self-care (01) ==
LOC: HO.HCS 13:56
PROVIDERS: PCP Internal Medicine; Visit Provider Nurse Practitioner Family
DX: R00.1 Bradycardia, unspecified (principal); R00.2 Palpitations; R07.89 Other chest pain
CPT/HCPCS: 99213

== ENCOUNTER → 2025-11-25 13:56 | Outpatient (BNVA) | payer OTHER, SELFPAY | PROVIDERS: PCP Internal Medicine; Visit Provider Nurse Practitioner Family | DX: R00.1 Bradycardia, unspecified (principal); R00.2 Palpitations; R07.89 Other chest pain | CPT/HCPCS: 99212 ==